=== PATIENT | female | born 1960 | race Caucasian/White ===

== ENCOUNTER 2017-02-25 14:03 | Emergency (ER) | payer OTHER ==
[2017-02-25] MEDS ORDERED: MORPHINE SULFATE 4 MG/ML SYRINGE IM STA (15:02)
--- NOTE | 2017-02-25 15:04 | ED ---
General Adult HPI - General Chief complaint: Fall Stated complaint: Fell 7 stairs. Arm Pain Time Seen by Provider: 02/25/17 14:56 Source: patient, RN notes reviewed Mode of arrival: wheelchair Limitations: no limitations - History of Present Illness Initial comments: patient is a 57-year-old female who presents to the emergency room today with a chief complaint of an injury to the right arm. She does admit that her dog tripped her up and she fell down the steps. She does admit that she try to catch herself with her arm. She does admit to pain locally to the right wrist area. Denies any head injury or loss conscious. Denies any other injuries or complaints at this time. Patient denies any recent fever, chills, shortness of breath, chest pain, back pain, abdominal pain, nausea or vomiting, numbness or tingling, dysuria or hematuria, constipation or diarrhea, headaches or visual changes, or any other complaints. - Related Data Home Medications Medication Instructions Recorded Confirmed ALPRAZolam [Xanax] 0.125 - 0.25 mg PO BID PRN 02/25/17 02/25/17 Alendronate Sodium [Fosamax] 70 mg PO Q7D 02/25/17 02/25/17 Etodolac [Lodine] 400 mg PO BID 02/25/17 02/25/17 Levothyroxine Sodium [Synthroid] 125 mcg PO DAILY 02/25/17 02/25/17 amLODIPine BESYLATE/BENAZEPRIL 1 cap PO DAILY 02/25/17 02/25/17 [Lotrel 5-20 mg Capsule] Previous Rx's Medication Instructions Recorded oxyCODONE-APAP 5-325MG [Percocet 1 tab PO Q6HR PRN #15 tab 02/25/17 5-325 mg] Allergies Allergy/AdvReac Type Severity Reaction Status Date / Time ciprofloxacin [From Cipro] Allergy Rash/Hives Verified 02/25/17 14:59 orange Allergy Anaphylaxis Verified 02/25/17 14:59 phenazopyridine Allergy Rash/Hives Verified 02/25/17 14:59 [From Pyridium] sulfamethoxazole Allergy Rash/Hives Verified 02/25/17 14:59 [From Bactrim] trimethoprim [From Bactrim] Allergy Rash/Hives Verified 02/25/17 14:59 Review of Systems ROS Statement: Those systems with pertinent positive or pertinent negative responses have been documented in the HPI. ROS Other: All systems not noted in ROS Statement are negative. Past Medical History Past Medical History: Thyroid Disorder Additional Past Medical History / Comment(s): kidney stone History of Any Multi-Drug Resistant Organisms: None Reported Past Surgical History: Appendectomy, Hernia Repair, Hysterectomy, Orthopedic Surgery, Tubal Ligation Additional Past Surgical History / Comment(s): rt hand, lithotripsy, thyroidectomy, rotator cuff Past Psychological History: No Psychological Hx Reported Smoking Status: Never smoker Past Alcohol Use History: None Reported Past Drug Use History: None Reported General Exam - General Exam Comments Initial Comments: General: The patient is awake and alert, in no distress, and does not appear acutely ill. Neck: The neck is supple, there is no tenderness or JVD. Cardiovascular: There is a regular rate and rhythm. No murmur, rub or gallop is appreciated. Respiratory: Lungs are clear to auscultation, respirations are non-labored, breath sounds are equal. No wheezes, stridor, rales, or rhonchi. Musculoskeletal: patient does have some swelling to the posterior aspect of the right wrist. She is locally tender over both distal right ulna and radius. Sensations are intact. Shows limited range of motion of the right wrist due to pain. No bony tenderness to the right elbow or right shoulder. Cap refill less than 2 seconds. Pulses equal bilaterally 2+. Neurological: A&O x 3. CN II-XII intact, There are no obvious motor or sensory deficits. Coordination appears grossly intact. Speech is normal. Skin: Skin is warm and dry and no rashes or lesions are noted. Psychiatric: Normal mood and affect. Limitations: no limitations Course Vital Signs 02/25/17 02/25/17 14:32 16:21 Temperature 98.6 F 98.5 F Pulse Rate 75 85 Respiratory 20 18 Rate Blood Pressure 136/68 136/60 O2 Sat by Pulse 98 98 Oximetry Medical Decision Making - Medical Decision Making x-ray reviewed does show a Fracture of the distal radius with ulnar styloid fracture. Patient's neurovascular intact. Has been splinted in a volar short arm splint on the right. Neurovascular rechecked and intact after splint. Patient will be discharged home advised follow-up with her orthopedic doctor. She states she's been [facility] Patient is given a short prescription of pain medication. She states [place] make her nauseous. Disposition Clinical Impression: Fall, Wrist fracture Disposition: HOME SELF-CARE Condition: Good Instructions: Wrist Fracture in Adults (ED) Additional Instructions: Please see splinted in place and follow-up with orthopedics in the next 1-2 days. Please continue to ice elevate the affected area and use pain medication as needed for pain. Please return to emergency room for any other concerns. Prescriptions: oxyCODONE-APAP 5-325MG [Percocet 5-325 mg] 1 tab PO Q6HR PRN #15 tab PRN Reason: Pain Referrals: Hallie Petty MD [Primary Care Provider] - 1-2 days Time of Disposition: 16:26
--- NOTE | 2017-02-25 15:58 | XR ---
Right wrist HISTORY: Trauma and pain 3 views of the right wrist There is an intra-articular comminuted fracture the distal right radius minimal displacement of fract ure fragments. Ulnar styloid fracture is also present without significant displacement. Bone minerali zation is reduced. Suspect the trapezium and trapezoid bones have been resorbed, catheter is present at the level of the trapezoid, trapezium is diminished in size, there is bone remodeling. There is so ft tissue swelling. IMPRESSION: Wrist fractures as described.
[2017-02-25 16:22] VITALS: BP 136/60; RESP 18; TEMP 98.5
[2017-02-25 16:35] VITALS: PULSE 87
== END 2017-02-25 16:40 | disposition home or self-care (01) ==
LOC: EC 14:03
DX: S52.501A Unspecified fracture of the lower end of right radius, initial encounter for closed fracture (principal); S52.611A Displaced fracture of right ulna styloid process, initial encounter for closed fracture; E07.9 Disorder of thyroid, unspecified; Z79.899 Other long term (current) drug therapy; Z88.1 Allergy status to other antibiotic agents; Z88.2 Allergy status to sulfonamides; Z91.018 Allergy to other foods; W10.9XXA Fall (on) (from) unspecified stairs and steps, initial encounter; Y92.009 Unspecified place in unspecified non-institutional (private) residence as the place of occurrence of the external cause
CPT/HCPCS: 73110; 99283; 29125; 96372; J2270

== ENCOUNTER 2017-08-06 08:42 | Emergency (ER) | payer OTHER ==
[2017-08-06] MEDS ORDERED: HYDROmorphone 1 MG/ML 1 ML SYRINGE IVP STA (09:11)
[2017-08-06] MEDS ORDERED: ONDANSETRON 4 MG/2 ML VIAL IVP STA ×2 (09:11→10:40)
--- NOTE | 2017-08-06 09:21 | ED ---
Abdominal Pain HPI - General Chief Complaint: Abdominal Pain Stated Complaint: Abd Pain Time Seen by Provider: 08/06/17 08:57 Source: patient, RN notes reviewed, old records reviewed Mode of arrival: wheelchair Limitations: no limitations - History of Present Illness Initial Comments: Patient 57-year-old female who presents emergency room today with a chief complaint of increased pain to the left lower abdomen. Does not that she was at [facility] emergency room 2 days ago had a CT performed which showed a hernia on the side. She states that since her exam there are 2 days ago she' s been having increased pain. She states it does radiate down the left knee area. She states it is worse with walking. Patient denies any other complaints or symptoms. Patient denies any recent fever, chills, shortness of breath, chest pain, nausea or vomiting, numbness or tingling, dysuria or hematuria, constipation or diarrhea, headaches or visual changes, or any other complaints. - Related Data Home Medications Medication Instructions Recorded Confirmed ALPRAZolam [Xanax] 0.25 mg PO BID PRN 02/25/17 08/06/17 Alendronate Sodium [Fosamax] 70 mg PO Q7D 02/25/17 08/06/17 Levothyroxine Sodium [Synthroid] 125 mcg PO DAILY 02/25/17 08/06/17 amLODIPine BESYLATE/BENAZEPRIL 1 cap PO DAILY 02/25/17 08/06/17 [Lotrel 5-20 mg Capsule] Acetaminophen-Codeine 300-30mg 1 tab PO Q6H PRN 08/06/17 08/06/17 [Tylenol #3] Cephalexin [Keflex] 250 mg PO Q12HR 08/06/17 08/06/17 Cholecalciferol (Vitamin D3) 10,000 unit PO MOWEFR 08/06/17 08/06/17 [Vitamin D3] Etodolac [Lodine] 400 mg PO BID 08/06/17 08/06/17 Previous Rx's Medication Instructions Recorded Dicyclomine [Bentyl] 20 mg PO QID #20 tablet 08/06/17 Ondansetron Odt [Zofran ODT] 4 mg PO Q8HR PRN #20 tab 08/06/17 Allergies Allergy/AdvReac Type Severity Reaction Status Date / Time ciprofloxacin [From Cipro] Allergy Rash/Hives Verified 08/06/17 09:17 orange Allergy Anaphylaxis Verified 08/06/17 09:17 phenazopyridine Allergy Rash/Hives Verified 08/06/17 09:17 [From Pyridium] sulfamethoxazole Allergy Rash/Hives Verified 08/06/17 09:17 [From Bactrim] trimethoprim [From Bactrim] Allergy Rash/Hives Verified 08/06/17 09:17 Review of Systems ROS Statement: Those systems with pertinent positive or pertinent negative responses have been documented in the HPI. ROS Other: All systems not noted in ROS Statement are negative. Past Medical History Past Medical History: Thyroid Disorder Additional Past Medical History / Comment(s): kidney stone History of Any Multi-Drug Resistant Organisms: None Reported Past Surgical History: Appendectomy, Hernia Repair, Hysterectomy, Orthopedic Surgery, Tubal Ligation Additional Past Surgical History / Comment(s): rt hand, lithotripsy, thyroidectomy, rotator cuff Past Psychological History: No Psychological Hx Reported Smoking Status: Never smoker Past Alcohol Use History: None Reported Past Drug Use History: None Reported General Exam - General Exam Comments Initial Comments: General: The patient is awake and alert, in mild distress. Eye: Pupils are equal, round and reactive to light, extra-ocular movements are intact. No nystagmus. There is normal conjunctiva bilaterally. No signs of icterus. Ears, nose, mouth and throat: There are moist mucous membranes and no oral lesions. Neck: The neck is supple, there is no tenderness or JVD. Cardiovascular: There is a regular rate and rhythm. No murmur, rub or gallop is appreciated. Respiratory: Lungs are clear to auscultation, respirations are non-labored, breath sounds are equal. No wheezes, stridor, rales, or rhonchi. Gastrointestinal: Patient has normal appearance abdomen. Normal bowel sounds. Soft on palpation. Patient does have increased tenderness left lower quadrant. No rebound or guarding. Mild left CVA tenderness. Musculoskeletal: Normal ROM, no tenderness. Strength 5/5. Sensation intact. Pulses equal bilaterally 2+. Neurological: A&O x 3. CN II-XII intact, There are no obvious motor or sensory deficits. Coordination appears grossly intact. Speech is normal. Skin: Skin is warm and dry and no rashes or lesions are noted. Psychiatric: Cooperative, appropriate mood & affect, normal judgment. Limitations: no limitations Course Vital Signs 08/06/17 08/06/17 08:43 10:00 Temperature 97 F L 97.3 F L Pulse Rate 88 70 Respiratory 22 16 Rate Blood Pressure 154/74 170/77 O2 Sat by Pulse 98 95 Oximetry Medical Decision Making - Medical Decision Making Patient reexamined at this time shows no signs of distress. Case was discussed with attending physician Dr. Burton. Patient's report from [facility] emergency room was reviewed. A CT was obtained 2 days ago which showed possible enteritis. Nonobstructing left renal pelvis. Small fat-containing left inguinal hernia. Subcentimeter lymph nodes within the left inguinal region. Patient's pain improved here in emergency room. She is feeling well feels comfortable being discharged to follow-up the family doctor. Also be given a surgeon to follow-up. Patient will be treated for symptoms of nausea vomiting diarrhea that she's had over the last week. She states this is no sign of blood. Patient did have recent CT just 2 days ago at this time we will hold CAT scan. Was discussed with patient. She is comfortable to plan at this time states understanding and is in agreement. - Lab Data Result diagrams: 08/06/17 09:30 08/06/17 09:30 Lab Results 08/06/17 08/06/17 08/06/17 Range/Units 09:30 09:30 09:30 WBC 7.2 (3.8-10.6) k/uL RBC 4.94 (3.80-5.40) m/uL Hgb 13.9 (11.4-16.0) gm/dL Hct 42.7 (34.0-46.0) % MCV 86.6 (80.0-100.0) fL MCH 28.1 (25.0-35.0) pg MCHC 32.5 (31.0-37.0) g/dL RDW 14.8 (11.5-15.5) % Plt Count 245 (150-450) k/uL Neutrophils % 81 % Lymphocytes % 12 % Monocytes % 5 % Eosinophils % 1 % Basophils % 1 % Neutrophils # 5.8 (1.3-7.7) k/uL Lymphocytes # 0.9 L (1.0-4.8) k/uL Monocytes # 0.3 (0-1.0) k/uL Eosinophils # 0.1 (0-0.7) k/uL Basophils # 0.0 (0-0.2) k/uL Sodium 142 (137-145) mmol/L Potassium 4.3 (3.5-5.1) mmol/L Chloride 107 (98-107) mmol/L Carbon Dioxide 24 (22-30) mmol/L Anion Gap 11 mmol/L BUN 17 (7-17) mg/dL Creatinine 0.89 (0.52-1.04) mg/dL Est GFR (MDRD) Af Amer >60 (>60 ml/min/1.73 sqM) Est GFR (MDRD) Non-Af >60 (>60 ml/min/1.73 sqM) Glucose 100 H (74-99) mg/dL Plasma Lactic Acid Jonel 1.0 (0.7-2.0) mmol/L Calcium 10.0 (8.4-10.2) mg/dL Total Bilirubin 0.5 (0.2-1.3) mg/dL AST 18 (14-36) U/L ALT 29 (9-52) U/L Alkaline Phosphatase 113 (38-126) U/L Total Protein 8.4 H (6.3-8.2) g/dL Albumin 4.6 (3.5-5.0) g/dL Lipase 65 (23-300) U/L Urine Color Urine Appearance (Clear) Urine pH (5.0-8.0) Ur Specific [place] (1.001-1.035) Urine Protein (Negative) Urine Glucose (UA) (Negative) Urine Ketones (Negative) Urine Blood (Negative) Urine Nitrite (Negative) Urine Bilirubin (Negative) Urine Urobilinogen (<2.0) mg/dL Ur Leukocyte Esterase (Negative) 08/06/17 Range/Units 09:30 WBC (3.8-10.6) k/uL RBC (3.80-5.40) m/uL Hgb (11.4-16.0) gm/dL Hct (34.0-46.0) % MCV (80.0-100.0) fL MCH (25.0-35.0) pg MCHC (31.0-37.0) g/dL RDW (11.5-15.5) % Plt Count (150-450) k/uL Neutrophils % % Lymphocytes % % Monocytes % % Eosinophils % % Basophils % % Neutrophils # (1.3-7.7) k/uL Lymphocytes # (1.0-4.8) k/uL Monocytes # (0-1.0) k/uL Eosinophils # (0-0.7) k/uL Basophils # (0-0.2) k/uL Sodium (137-145) mmol/L Potassium (3.5-5.1) mmol/L Chloride (98-107) mmol/L Carbon Dioxide (22-30) mmol/L Anion Gap mmol/L BUN (7-17) mg/dL Creatinine (0.52-1.04) mg/dL Est GFR (MDRD) Af Amer (>60 ml/min/1.73 sqM) Est GFR (MDRD) Non-Af (>60 ml/min/1.73 sqM) Glucose (74-99) mg/dL Plasma Lactic Acid Jonel (0.7-2.0) mmol/L Calcium (8.4-10.2) mg/dL Total Bilirubin (0.2-1.3) mg/dL AST (14-36) U/L ALT (9-52) U/L Alkaline Phosphatase (38-126) U/L Total Protein (6.3-8.2) g/dL Albumin (3.5-5.0) g/dL Lipase (23-300) U/L Urine Color Yellow Urine Appearance Clear (Clear) Urine pH 7.0 (5.0-8.0) Ur Specific [place] 1.017 (1.001-1.035) Urine Protein Negative (Negative) Urine Glucose (UA) Negative (Negative) Urine Ketones Negative (Negative) Urine Blood Negative (Negative) Urine Nitrite Negative (Negative) Urine Bilirubin 3+ H (Negative) Urine Urobilinogen <2.0 (<2.0) mg/dL Ur Leukocyte Esterase Negative (Negative) Disposition Clinical Impression: Nausea vomiting and diarrhea Disposition: HOME SELF-CARE Condition: Good Instructions: Acute Nausea and Vomiting (ED) Additional Instructions: Please use medication as discussed. Please follow-up with family doctor in the next 2 days of symptoms have not improved. Please return to emergency room if the symptoms increase or worsen or for any other concerns. Prescriptions: Dicyclomine [Bentyl] 20 mg PO QID #20 tablet Ondansetron Odt [Zofran ODT] 4 mg PO Q8HR PRN #20 tab PRN Reason: Nausea Referrals: Hallie Petty MD [Primary Care Provider] - 1-2 days Romana Wilkinson MD [STAFF PHYSICIAN] - 1-2 days Time of Disposition: 10:39
[2017-08-06] MEDS ORDERED: HYDROmorphone 0.5 MG/0.5 ML SYRINGE IVP STA (09:26)
[2017-08-06 09:43] LABS: Basophils % (A) 1 %; CH 27.4; CHCM 31.8; Eosinophils # (A) 0.1 k/uL (0-0.7); Eosinophils % (A) 1 %; HCT 42.7 % (34.0-46.0); HDW 2.23; HGB 13.9 gm/dL (11.4-16.0); Luc # (Auto) 0.04; Luc % (Auto) 1; Lymphocytes # (A) 0.9 k/uL (1.0-4.8); Lymphocytes % (A) 12 %; MCH 28.1 pg (25.0-35.0); MCHC 32.5 g/dL (31.0-37.0); MCV 86.6 fL (80.0-100.0); Mean Platelet Volume 9.7; Monocytes # (A) 0.3 k/uL (0-1.0); Monocytes % (A) 5 %; Neutrophils # (A) 5.8 k/uL (1.3-7.7); Neutrophils % (A) 81 %; RBC 4.94 m/uL (3.80-5.40); RDW 14.8 % (11.5-15.5); WBC 7.2 k/uL (3.8-10.6); WBC (Perox) 7.34
[2017-08-06 09:51] LABS: ALT 29 U/L (9-52); Alkaline Phosphatase 113 U/L (38-126); Anion Gap 11 mmol/L; Blood Urea Nitrogen 17 mg/dL (7-17); Carbon Dioxide 24 mmol/L (22-30); Chloride 107 mmol/L (98-107); Glucose 100 mg/dL (74-99); Non-African American GFR(MDRD) >60 (>60 ml/min/1.73 sqM); Potassium 4.3 mmol/L (3.5-5.1); Sodium 142 mmol/L (137-145); Total Bilirubin 0.5 mg/dL (0.2-1.3); Total Protein 8.4 g/dL (6.3-8.2)
[2017-08-06 10:10] VITALS: BP 170/77; PULSE 70; RESP 16; TEMP 97.3
[2017-08-06 10:10] LABS: AST 18 U/L (14-36)
[2017-08-06 10:13] LABS: Appearance,Urine Clear (Clear); Bilirubin,Urine 3+ (Negative); Glucose,Urine (UA) Negative (Negative); Ketones,Urine Negative (Negative); Leukocyte Esterase,Urine Negative (Negative); Nitrite,Urine Negative (Negative); Protein,Urine Negative (Negative); Specific Gravity,Urine 1.017 (1.001-1.035); UA Billing (MACRO vs. MICRO) CHEM; Urobilinogen,Urine <2.0 mg/dL (<2.0)
== END 2017-08-06 10:52 | disposition home or self-care (01) ==
LOC: EC 08:42
DX: R11.2 Nausea with vomiting, unspecified (principal); R19.7 Diarrhea, unspecified; R10.32 Left lower quadrant pain; M25.562 Pain in left knee; E07.9 Disorder of thyroid, unspecified; Z79.1 Long term (current) use of non-steroidal anti-inflammatories (NSAID); Z79.899 Other long term (current) drug therapy; Z88.1 Allergy status to other antibiotic agents; Z88.8 Allergy status to other drugs, medicaments and biological substances; Z91.018 Allergy to other foods; Z90.49 Acquired absence of other specified parts of digestive tract
CPT/HCPCS: 36415; 80053; 83605; 83690; 85025; 81003; 99284; 96374; 96375; 96376; J2405; J1170

== ENCOUNTER 2019-06-18 13:42 | Emergency (ER) | payer OTHER ==
[2019-06-18 13:50] VITALS: PULSE 107; RESP 16; TEMP 98
[2019-06-18 13:51] VITALS: BP 169/93
[2019-06-18] MEDS ORDERED: ONDANSETRON 4 MG/2 ML VIAL IVP STA (14:18)
[2019-06-18] MEDS ORDERED: MORPHINE SULFATE 4 MG/ML SYRINGE IV STA (14:18)
[2019-06-18] MEDS ORDERED: SODIUM CHLORIDE 0.9% 1,000 ML IV STA (14:18)
[2019-06-18 14:34] LABS: Basophils # (A) 0.1 k/uL (0-0.2); Basophils % (A) 1 %; Eosinophils # (A) 0.3 k/uL (0-0.7); Eosinophils % (A) 4 %; HCT 43.1 % (34.0-46.0); HGB 14.4 gm/dL (11.4-16.0); Lymphocytes # (A) 1.8 k/uL (1.0-4.8); Lymphocytes % (A) 25 %; MCH 28.9 pg (25.0-35.0); MCHC 33.5 g/dL (31.0-37.0); MCV 86.3 fL (80.0-100.0); Mean Platelet Volume 8.9; Monocytes # (A) 0.6 k/uL (0-1.0); Monocytes % (A) 8 %; Neutrophils # (A) 4.4 k/uL (1.3-7.7); Neutrophils % (A) 60 %; Platelet Count 273 k/uL (150-450); RBC 4.99 m/uL (3.80-5.40); RDW 13.1 % (11.5-15.5); WBC 7.2 k/uL (3.8-10.6)
[2019-06-18 14:42] LABS: INR 0.9 (<1.2); Partial Thromboplastin Time 22.5 sec (22.0-30.0)
[2019-06-18 14:47] LABS: Appearance,Urine Cloudy (Clear); Bacteria,Urine Occasional /hpf; Bilirubin,Urine Negative (Negative); Blood,Urine Small (Negative); Color,Urine Colorless; Glucose,Urine (UA) Negative (Negative); Ketones,Urine Negative (Negative); Leukocyte Esterase,Urine Large (Negative); Mucus,Urine Rare /hpf; Nitrite,Urine Negative (Negative); PH, Urine 6.5 (5.0-8.0); Protein,Urine Trace (Negative); RBC,Urine 3 /hpf (0-5); Specific Gravity,Urine 1.003 (1.001-1.035); Urobilinogen,Urine <2.0 mg/dL (<2.0)
[2019-06-18 14:51] LABS: Albumin 4.7 g/dL (3.5-5.0); Calcium 10.7 mg/dL (8.4-10.2); Potassium 4.3 mmol/L (3.5-5.1); Total Bilirubin 0.3 mg/dL (0.2-1.3); Total Protein 8.3 g/dL (6.3-8.2)
--- NOTE | 2019-06-18 15:24 | XR ---
EXAMINATION TYPE: XR KUB DATE OF EXAM: 06/18/2019 COMPARISON: NONE HISTORY: Abdominal pain TECHNIQUE: 2 views upright FINDINGS: There is no sign of intestinal obstruction or pneumoperitoneum. Fecal pattern is normal. Lori ng bases are clear. There are no pathologic calcifications. IMPRESSION: Nonacute abdomen.
--- NOTE | 2019-06-18 16:32 | CT ---
EXAMINATION TYPE: CT abdomen pelvis w con DATE OF EXAM: 06/18/2019 COMPARISON: None HISTORY: Abdominal pain CT DLP: 927.4 mGycm Automated exposure control for dose reduction was used. TECHNIQUE: Helical acquisition of images was performed from the lung bases through the pelvis. CONTRAST: Performed without Oral Contrast and with IV Contrast, patient injected with 100 mL of Isovue 300. FINDINGS: Heart appears normal. There is no pericardial effusion. Lung bases are clear. There is no pleural eff usion. Liver spleen pancreas appear normal. Bile ducts are not dilated. Gallbladder appears absent. Stomach appears normal. There is no adrenal mass. Kidneys have normal size and contour. There is no h ydronephrosis. Ureters are not dilated. There is normal contrast opacification of the kidneys. There is no retroperitoneal adenopathy. Bladder distends smoothly. There is no inguinal hernia. There is hy sterectomy. There is no free fluid in the pelvis. There is no mesenteric edema. There is no ascites or free air. Appendix is not definitely seen. There is no sign of thickened appendix. There is no evidence of bowel obstruction. There is narrowing of L5-S1 disc space with spur formation. There is no lumbar compression fracture. The bony pelvis appears intact. IMPRESSION: NEGATIVE CT SCAN ABDOMEN AND PELVIS. I DO NOT SEE A CAUSE FOR ABDOMINAL PAIN.
--- NOTE | 2019-06-18 16:52 | ED ---
Abdominal Pain HPI - General Chief Complaint: Abdominal Pain Stated Complaint: kidney stone Time Seen by Provider: 06/18/19 14:04 Source: patient Mode of arrival: ambulatory Limitations: no limitations - History of Present Illness Initial Comments: The patient is a 5 year old female presents the emergency room with reported suprapubic abdominal pain. The patient does have a large history of kidney stones. She states that this does feel similar nature. She has had increased frequency of urination. Denies dysuria or hematuria. She has seen Dr. Uriarte in the past. The pain has been present for the past week. She admits it feels like a burning, stabbing sensation. Denies abdominal trauma. Denies any abnormal vaginal bleeding or discharge. No fevers or chills. Denies diarrhea, consultation, melanotic stools or hematochezia. She has been taking Tylenol at home for symptoms however hasn't helped. She denies any chest pain or shortness of breath. No ripping or tearing sensation to her back. Denies any pain in her lower extremities. Denies difficulty urinating. There are no alleviating, Perceptin or modifying factors - Related Data Home Medications Medication Instructions Recorded Confirmed Levothyroxine Sodium [Synthroid] 125 mcg PO DAILY 02/25/17 06/18/19 amLODIPine BESYLATE/BENAZEPRIL 1 cap PO DAILY 02/25/17 06/18/19 [Lotrel 5-20 mg Capsule] Naproxen Sodium [Aleve] 220 mg PO Q12HR PRN 06/18/19 06/18/19 Potassium Citrate [Urocit-K] 15 meq PO TID 06/18/19 06/18/19 Simvastatin [Zocor] 10 mg PO HS 06/18/19 06/18/19 diphenhydrAMINE HCL [Benadryl] 25 mg PO QAM 06/18/19 06/18/19 Previous Rx's Medication Instructions Recorded Acetaminophen-Codeine 300-30mg 1 tab PO Q6HR PRN #12 tablet 06/18/19 [Tylenol #3] Cephalexin [Keflex] 500 mg PO Q12HR #14 cap 06/18/19 Methenamine/Sodium Salicylate 1 each PO TID PRN #10 tablet 06/18/19 [Cystex Tablet] Allergies Allergy/AdvReac Type Severity Reaction Status Date / Time ciprofloxacin [From Cipro] Allergy Rash/Hives Verified 06/18/19 14:20 orange Allergy Anaphylaxis Verified 06/18/19 14:20 phenazopyridine Allergy Rash/Hives Verified 06/18/19 14:20 [From Pyridium] sulfamethoxazole Allergy Rash/Hives Verified 06/18/19 14:20 [From Bactrim] trimethoprim [From Bactrim] Allergy Rash/Hives Verified 06/18/19 14:20 Review of Systems ROS Statement: Those systems with pertinent positive or pertinent negative responses have been documented in the HPI. ROS Other: All systems not noted in ROS Statement are negative. Past Medical History Past Medical History: Thyroid Disorder Additional Past Medical History / Comment(s): kidney stone History of Any Multi-Drug Resistant Organisms: None Reported Past Surgical History: Appendectomy, Hernia Repair, Hysterectomy, Orthopedic Surgery, Tubal Ligation Additional Past Surgical History / Comment(s): rt hand, lithotripsy, thyroidectomy, rotator cuff Past Psychological History: No Psychological Hx Reported Smoking Status: Never smoker Past Alcohol Use History: None Reported Past Drug Use History: None Reported General Exam Limitations: no limitations General appearance: alert, anxious Head exam: Present: atraumatic, normocephalic, normal inspection Eye exam: Present: normal appearance, PERRL, EOMI. Absent: scleral icterus, conjunctival injection, periorbital swelling ENT exam: Present: normal exam, mucous membranes moist Neck exam: Present: normal inspection. Absent: tenderness, meningismus, lymph adenopathy Respiratory exam: Present: normal lung sounds bilaterally. Absent: respiratory distress, wheezes, rales, rhonchi, stridor Cardiovascular Exam: Present: normal rhythm, tachycardia, normal heart sounds. Absent: systolic murmur, diastolic murmur, rubs, gallop, clicks GI/Abdominal exam: Present: soft, tenderness (periumbilical), normal bowel sounds. Absent: distended, guarding, rebound, rigid Extremities exam: Present: normal inspection, full ROM, normal capillary refill. Absent: tenderness, pedal edema, joint swelling, calf tenderness Back exam: Present: normal inspection Neurological exam: Present: alert, oriented X3, CN II-XII intact Psychiatric exam: Present: normal affect, normal mood Skin exam: Present: warm, dry, intact, normal color. Absent: rash Course Vital Signs 06/18/19 13:48 Temperature 98 F Pulse Rate 107 H Respiratory 16 Rate Blood Pressure 169/93 O2 Sat by Pulse 100 Oximetry Medical Decision Making - Medical Decision Making Upon arrival the patient is placed in room 17. The rest of physical exam is performed. Peripheral IV is established. The patient is given 4 mg of morphine for her pain and 4 mg of Zofran for her nausea. Labstudies are conducted which demonstrates a hemoglobin of 14.4. Coags are normal. Chemistries show a crea tinine of 0.88. Glucose 138. UA shows cloudy urine, trace protein, small blood, large leukocyte esterase, greater than 182 white blood cells many white blood cell clumps occasional bacteria and rare mucous. CT of the abdomen and pelvis demonstrates no acute findings. KUB was also performed to evaluate his stone which demonstrates no acute findings. I did discuss these results with the patient. She reports that her pain has greatly improved at this time. I did discuss diagnosis, differential and treatment plan. As the patient does have bacteria in her urine with a significant amount of red blood cells and white blood cells I did recommend treatment with antibiotics. Patient did agree . She'll be given a prescription for Cystex and Keflex. I will also provide the patient with a short prescription for Tylenol No. 3. She does sign an opiate start talking form. She does have an appointment with her primary care physician tomorrow. I informed the patient if she has any new or worsening symptoms that she should return to the emergency room. The patient was discharged home in stable condition - Lab Data Result diagrams: 06/18/19 14:07 06/18/19 14:07 Lab Results 06/18/19 06/18/19 06/18/19 Range/Units 14:07 14:07 14:07 WBC 7.2 (3.8-10.6) k/uL RBC 4.99 (3.80-5.40) m/uL Hgb 14.4 (11.4-16.0) gm/dL Hct 43.1 (34.0-46.0) % MCV 86.3 (80.0-100.0) fL MCH 28.9 (25.0-35.0) pg MCHC 33.5 (31.0-37.0) g/dL RDW 13.1 (11.5-15.5) % Plt Count 273 (150-450) k/uL Neutrophils % 60 % Lymphocytes % 25 % Monocytes % 8 % Eosinophils % 4 % Basophils % 1 % Neutrophils # 4.4 (1.3-7.7) k/uL Lymphocytes # 1.8 (1.0-4.8) k/uL Monocytes # 0.6 (0-1.0) k/uL Eosinophils # 0.3 (0-0.7) k/uL Basophils # 0.1 (0-0.2) k/uL PT (9.0-12.0) sec INR (<1.2) APTT (22.0-30.0) sec Sodium 139 (137-145) mmol/L Potassium 4.3 (3.5-5.1) mmol/L Chloride 104 (98-107) mmol/L Carbon Dioxide 23 (22-30) mmol/L Anion Gap 12 mmol/L BUN 12 (7-17) mg/dL Creatinine 0.88 (0.52-1.04) mg/dL Est GFR (CKD-EPI)AfAm 83 (>60 ml/min/1.73 sqM) Est GFR (CKD-EPI)NonAf 72 (>60 ml/min/1.73 sqM) Glucose 138 H (74-99) mg/dL Plasma Lactic Acid Jonel (0.7-2.0) mmol/L Calcium 10.7 H (8.4-10.2) mg/dL Total Bilirubin 0.3 (0.2-1.3) mg/dL AST 26 (14-36) U/L ALT 30 (9-52) U/L Alkaline Phosphatase 107 (38-126) U/L Total Protein 8.3 H (6.3-8.2) g/dL Albumin 4.7 (3.5-5.0) g/dL Lipase 117 (23-300) U/L Urine Color Colorless Urine Appearance Cloudy H (Clear) Urine pH 6.5 (5.0-8.0) Ur Specific Laura 1.003 (1.001-1.035) Urine Protein Trace H (Negative) Urine Glucose (UA) Negative (Negative) Urine Ketones Negative (Negative) Urine Blood Small H (Negative) Urine Nitrite Negative (Negative) Urine Bilirubin Negative (Negative) Urine Urobilinogen <2.0 (<2.0) mg/dL Ur Leukocyte Esterase Large H (Negative) Urine RBC 3 (0-5) /hpf Urine WBC >182 H (0-5) /hpf Urine WBC Clumps Many H (None) /hpf Urine Bacteria Occasional H (None) /hpf Urine Mucus Rare H (None) /hpf 06/18/19 06/18/19 Range/Units 14:07 14:50 WBC (3.8-10.6) k/uL RBC (3.80-5.40) m/uL Hgb (11.4-16.0) gm/dL Hct (34.0-46.0) % MCV (80.0-100.0) fL MCH (25.0-35.0) pg MCHC (31.0-37.0) g/dL RDW (11.5-15.5) % Plt Count (150-450) k/uL Neutrophils % % Lymphocytes % % Monocytes % % Eosinophils % % Basophils % % Neutrophils # (1.3-7.7) k/uL Lymphocytes # (1.0-4.8) k/uL Monocytes # (0-1.0) k/uL Eosinophils # (0-0.7) k/uL Basophils # (0-0.2) k/uL PT 10.0 (9.0-12.0) sec INR 0.9 (<1.2) APTT 22.5 (22.0-30.0) sec Sodium (137-145) mmol/L Potassium (3.5-5.1) mmol/L Chloride (98-107) mmol/L Carbon Dioxide (22-30) mmol/L Anion Gap mmol/L BUN (7-17) mg/dL Creatinine (0.52-1.04) mg/dL Est GFR (CKD-EPI)AfAm (>60 ml/min/1.73 sqM) Est GFR (CKD-EPI)NonAf (>60 ml/min/1.73 sqM) Glucose (74-99) mg/dL Plasma Lactic Acid Jonel 1.1 (0.7-2.0) mmol/L Calcium (8.4-10.2) mg/dL Total Bilirubin (0.2-1.3) mg/dL AST (14-36) U/L ALT (9-52) U/L Alkaline Phosphatase (38-126) U/L Total Protein (6.3-8.2) g/dL Albumin (3.5-5.0) g/dL Lipase (23-300) U/L Urine Color Urine Appearance (Clear) Urine pH (5.0-8.0) Ur Specific [place] (1.001-1.035) Urine Protein (Negative) Urine Glucose (UA) (Negative) Urine Ketones (Negative) Urine Blood (Negative) Urine Nitrite (Negative) Urine Bilirubin (Negative) Urine Urobilinogen (<2.0) mg/dL Ur Leukocyte Esterase (Negative) Urine RBC (0-5) /hpf Urine WBC (0-5) /hpf Urine WBC Clumps (None) /hpf Urine Bacteria (None) /hpf Urine Mucus (None) /hpf Disposition Clinical Impression: Urinary tract infection Disposition: HOME SELF-CARE Condition: Stable Instructions (If sedation given, give patient instructions): Urinary Tract Infection in Women (ED) Additional Instructions: Please follow-up with your primary care doctor tomorrow your scheduled appointment. Return to the emergency room for any new or worsening symptoms Prescriptions: Methenamine/Sodium Salicylate [Cystex Tablet] 1 each PO TID PRN #10 tablet PRN Reason: Pain Cephalexin [Keflex] 500 mg PO Q12HR #14 cap Acetaminophen-Codeine 300-30mg [Tylenol #3] 1 tab PO Q6HR PRN #12 tablet PRN Reason: pain Is patient prescribed a controlled substance at d/c from ED?: Yes When asked, does pt state using other controlled substances?: No If prescribed controlled substance>3 days was MAPS reviewed?: Prescribed <3 Days If opioid is for acute pain is fill amount 7 days or less?: Yes If Rx opioid, was Start Talking consent form obtained?: Yes Referrals: Hallie Petty MD [Primary Care Provider] - 1-2 days Time of Disposition: 17:20
== END 2019-06-18 17:30 | disposition home or self-care (01) ==
LOC: EC 13:42
DX: N39.0 Urinary tract infection, site not specified (principal); R00.0 Tachycardia, unspecified; E07.9 Disorder of thyroid, unspecified; Z88.1 Allergy status to other antibiotic agents; Z88.2 Allergy status to sulfonamides; Z88.6 Allergy status to analgesic agent; Z79.890 Hormone replacement therapy; Z87.442 Personal history of urinary calculi; Z90.49 Acquired absence of other specified parts of digestive tract; Z98.890 Other specified postprocedural states
CPT/HCPCS: 36415; 80053; 83605; 83690; 85025; 85610; 85730; 81001; 87086; 87077; 87186; 74018; 74177; 99284; 96374; 96375; 96361; J2270; J2405; Q9967

== ENCOUNTER → 2019-11-20 | Outpatient (CLI) | payer OTHER ==
--- NOTE | 2019-11-20 13:19 | CT ---
EXAMINATION TYPE: CT facial bones wo/w con DATE OF EXAM: 11/20/2019 COMPARISON: None HISTORY: 59-year-old female Left sided jaw pain with decreased range of motion. TECHNIQUE: Contiguous axial scanning of the facial bones performed without and with IV Contrast, mingo ent injected with 100 mL of Isovue 300. Coronal reconstructions performed. CT DLP: 1203 mGycm Automated exposure control for dose reduction was used. FINDINGS: There is severe degenerative change of the bilateral TMJs with bony remodeling of the mandibular cond yles and [id number] articulation. Slight superior subluxation at the left TMJ. No periarticular fluid collection is identified or enhancing lesion. Small amount of fluid within the inferior right mastoid air cells. Trace mucosal thickening maxillary sinuses. Slight leftward nasal septal deviation. No acute fracture of the facial bones. Orbits and globes are intact. Visualized intracranial structures show no gross abnormality. Incidental dominant left vertebral emilia ry. IMPRESSION: 1. SEVERE BILATERAL TMJ OA WITH BONY REMODELING OF THE MANDIBULAR CONDYLES AND [id number] ARTICULAT ION. 2. ANTERIOR SUBLUXATION AT THE LEFT TMJ SUGGESTS JOINT DYSFUNCTION. 3. MILD CHRONIC MAXILLARY SINUS DISEASE.
== END | disposition home or self-care (01) ==
LOC: RADCTMAIN 12:12
PROVIDERS: ATTEND Internal Medicine
DX: S03.02XA Dislocation of jaw, left side, initial encounter (principal); M26.69 Other specified disorders of temporomandibular joint
CPT/HCPCS: 70488; Q9967

== ENCOUNTER → 2020-02-26 | Outpatient (CLI) | payer OTHER ==
[2020-02-26 08:45] LABS: Basophils # (A) 0.1 k/uL (0-0.2); Basophils % (A) 1 %; Eosinophils # (A) 0.3 k/uL (0-0.7); Eosinophils % (A) 4 %; HCT 42.5 % (34.0-46.0); HGB 13.7 gm/dL (11.4-16.0); Lymphocytes # (A) 1.2 k/uL (1.0-4.8); Lymphocytes % (A) 17 %; MCH 28.2 pg (25.0-35.0); MCHC 32.2 g/dL (31.0-37.0); MCV 87.4 fL (80.0-100.0); Mean Platelet Volume 10.1; Monocytes # (A) 0.4 k/uL (0-1.0); Monocytes % (A) 7 %; Neutrophils # (A) 4.6 k/uL (1.3-7.7); Neutrophils % (A) 69 %; Platelet Count 233 k/uL (150-450); RBC 4.87 m/uL (3.80-5.40); RDW 13.6 % (11.5-15.5); WBC 6.7 k/uL (3.8-10.6)
[2020-02-26 17:36] LABS: African American GFR (CKD) 70.4 (60.0-200.0); Albumin 4.6 g/dL (3.80-4.90); Albumin/Globulin Ratio 1.64 (1.60-3.17); Anion Gap 9.8 mmol/L (4.00-12.00); Calcium 9.4 mg/dL (8.7-10.3); Carbon Dioxide 24.2 mmol/L (21.6-31.8); Chol/HDL Ratio 3.72; Globulin 2.8 g/dL (1.6-3.3); LDL Cholesterol,Calculated 126.2 mg/dL (0.0-131.0); Non-African American GFR(CKD) 60.8 (60.0-200.0); Potassium 4.6 mmol/L (3.5-5.5); Total Bilirubin 0.3 mg/dL (0.3-1.2); Total Protein 7.4 g/dL (6.2-8.2); VLDL Calculation 31.8 mg/dL (5.00-40.00)
[2020-02-26 17:45] LABS: T4, Free (Free Thyroxine) 1.2 ng/dL (0.80-1.80)
== END | disposition home or self-care (01) ==
LOC: LABWHC1 07:54
PROVIDERS: ATTEND Internal Medicine
DX: E78.2 Mixed hyperlipidemia (principal); E03.9 Hypothyroidism, unspecified; I10 Essential (primary) hypertension
CPT/HCPCS: 36415; 80053; 80061; 84439; 84443; 85025

== ENCOUNTER → 2020-03-25 | Outpatient (CLI) | payer OTHER ==
--- NOTE | 2020-03-25 12:34 | XR ---
EXAMINATION TYPE: XR chest 2V DATE OF EXAM: 03/25/2020 COMPARISON: 06/11/2011 HISTORY: Shortness of breath TECHNIQUE: Frontal and lateral views of the chest are obtained. FINDINGS: Scattered senescent parenchymal changes noted. Hyperinflation compatible with COPD. No evidence for infiltrate. No evidence for atelectasis. Heart size is stable. Mediastinal structures are stable and grossly unremarkable. No evidence for hilar prominence. Degenerative changes dorsal spine. IMPRESSION: 1. No evidence for acute pulmonary disease.
== END | disposition home or self-care (01) ==
LOC: RADXRMAIN 09:41
PROVIDERS: ATTEND Internal Medicine
DX: J40 Bronchitis, not specified as acute or chronic (principal)
CPT/HCPCS: 71046

== ENCOUNTER → 2020-05-13 | Outpatient (CLI) | payer OTHER ==
--- NOTE | 2020-05-13 10:35 | XR ---
Cervical spine HISTORY: Spondylosis with radiculopathy, right arm numbness 5 views of the cervical spine There is multilevel spondylosis. Minimal retrolisthesis grade 1 is present at C3-C4. Cervical vertebr al bodies show preserved height. Bone mineralization is mildly reduced. There is loss of disc height at C3-4, C5-6, C6-7. Prevertebral soft tissues are normal. There are facet arthropathy changes. IMPRESSION: Degenerative disc disease and facet arthropathy.
== END | disposition home or self-care (01) ==
LOC: RADXRMAIN 09:44
PROVIDERS: ATTEND Internal Medicine
DX: M50.10 Cervical disc disorder with radiculopathy, unspecified cervical region (principal); M47.22 Other spondylosis with radiculopathy, cervical region
CPT/HCPCS: 72040

== ENCOUNTER 2020-06-02 09:00 | Emergency (ER) | payer OTHER ==
[2020-06-02 09:15] VITALS: TEMP 98.8
[2020-06-02] MEDS ORDERED: SODIUM CHLORIDE 0.9% 1,000 ML IV STA (09:31)
[2020-06-02] MEDS ORDERED: LORazepam 2 MG/ML INJ IV STA (09:32)
--- NOTE | 2020-06-02 09:35 | ED ---
General Adult HPI - General Chief complaint: Nausea/Vomiting/Diarrhea Stated complaint: jaw pain Time Seen by Provider: 06/02/20 09:16 Source: patient, family, RN notes reviewed Mode of arrival: ambulatory Limitations: no limitations - History of Present Illness Initial comments: Patient is a pleasant 60-year-old female presenting to the emergency Department with jaw pain. Onset of symptoms was yesterday. Patient had right-sided jaw pain that has increased. Patient does have some mild left-sided. Patient has noticed some mild swelling on the right side. Discomfort on the right side is severe. Discomfort does limit patient's ability to open her jaw. Patient did have a couple episodes of diarrhea yesterday. Patient earlier had some discomf ort of her right posterior neck however this has essentially resolved. No chest pain. - Related Data Home Medications Medication Instructions Recorded Confirmed Levothyroxine Sodium [Synthroid] 125 mcg PO DAILY 02/25/17 06/18/19 amLODIPine BESYLATE/BENAZEPRIL 1 cap PO DAILY 02/25/17 06/18/19 [Lotrel 5-20 mg Capsule] Naproxen Sodium [Aleve] 220 mg PO Q12HR PRN 06/18/19 06/18/19 Potassium Citrate [Urocit-K] 15 meq PO TID 06/18/19 06/18/19 Simvastatin [Zocor] 10 mg PO HS 06/18/19 06/18/19 diphenhydrAMINE HCL [Benadryl] 25 mg PO QAM 06/18/19 06/18/19 Previous Rx's Medication Instructions Recorded Acetaminophen-Codeine 300-30mg 1 tab PO Q6HR PRN #12 tablet 06/18/19 [Tylenol #3] Cephalexin [Keflex] 500 mg PO Q12HR #14 cap 06/18/19 Methenamine/Sodium Salicylate 1 each PO TID PRN #10 tablet 06/18/19 [Cystex Tablet] Ibuprofen [Motrin] 600 mg PO Q6HR PRN #20 tab 06/02/20 Allergies Allergy/AdvReac Type Severity Reaction Status Date / Time ciprofloxacin [From Cipro] Allergy Rash/Hives Verified 06/02/20 09:15 orange Allergy Anaphylaxis Verified 06/02/20 09:15 phenazopyridine Allergy Rash/Hives Verified 06/02/20 09:15 [From Pyridium] sulfamethoxazole Allergy Rash/Hives Verified 06/02/20 09:15 [From Bactrim] trimethoprim [From Bactrim] Allergy Rash/Hives Verified 06/02/20 09:15 Review of Systems ROS Statement: Those systems with pertinent positive or pertinent negative responses have been documented in the HPI. ROS Other: All systems not noted in ROS Statement are negative. Constitutional: Denies: fever Eyes: Denies: eye pain ENT: Reports: as per HPI Respiratory: Denies: dyspnea Cardiovascular: Denies: chest pain Endocrine: Denies: fatigue Gastrointestinal: Reports: diarrhea. Denies: abdominal pain Genitourinary: Denies: dysuria Musculoskeletal: Denies: back pain Skin: Denies: rash Neurological: Denies: weakness Past Medical History Past Medical History: Asthma, Thyroid Disorder Additional Past Medical History / Comment(s): kidney stone History of Any Multi-Drug Resistant Organisms: None Reported Past Surgical History: Appendectomy, Hernia Repair, Hysterectomy, Orthopedic Surgery, Tubal Ligation Additional Past Surgical History / Comment(s): rt hand, lithotripsy, thyroidectomy, rotator cuff Past Psychological History: No Psychological Hx Reported Smoking Status: Never smoker Past Alcohol Use History: None Reported Past Drug Use History: None Reported General Exam Limitations: no limitations General appearance: alert, anxious Head exam: Present: normocephalic Eye exam: Present: normal appearance ENT exam: Present: normal oropharynx (No swelling or tenderness in the subungual or submental region), other (Patient is only able to open her mouth around one third normal. Patient states secondary to discomfort. There is mild swelling right upper parotid gland region near the TMJ with moderate to severe tenderness. No erythema or warmth.) Neck exam: Present: normal inspection, full ROM. Absent: tenderness Respiratory exam: Present: normal lung sounds bilaterally. Absent: chest wall tenderness Cardiovascular Exam: Present: regular rate, normal rhythm Expanded Peripheral pulses: 2+: Radial (R), Radial (L), Dorsalis Pedis (R), Dorsalis Pedis (L) GI/Abdominal exam: Present: soft. Absent: tenderness Extremities exam: Present: normal inspection Neurological exam: Present: alert, CN II-XII intact. Absent: motor sensory deficit Expanded Motor strength exam: RUE: 5, LUE: 5, RLE: 5, LLE: 5 Psychiatric exam: Present: anxious Skin exam: Present: normal color Course Vital Signs 06/02/20 06/02/20 09:08 11:34 Temperature 98.8 F Pulse Rate 113 H 105 H Respiratory 18 20 Rate Blood Pressure 147/62 104/87 O2 Sat by Pulse 100 96 Oximetry EKG Findings - EKG Comments: EKG Findings:: Sinus tachycardia 113. NV 126. QRS 76. QT 342. QTC 469. Normal axis. Normal QRS. Inferior T wave inversion Medical Decision Making - Medical Decision Making Patient reevaluated and feeling much better. Case was discussed with Dr. Petty who is aware and agreeable with follow-up this week. Patient feels much better and has better range of motion of her jaw. Patient comfortable with discharge home. - Lab Data Result diagrams: 06/02/20 09:48 06/02/20 09:48 Lab Results 06/02/20 06/02/20 06/02/20 Range/Units 09:48 09:48 09:48 WBC 10.1 (3.8-10.6) k/uL RBC 5.29 (3.80-5.40) m/uL Hgb 14.3 (11.4-16.0) gm/dL Hct 44.2 (34.0-46.0) % MCV 83.5 (80.0-100.0) fL MCH 27.0 (25.0-35.0) pg MCHC 32.4 (31.0-37.0) g/dL RDW 13.3 (11.5-15.5) % Plt Count 266 (150-450) k/uL Neutrophils % 78 % Lymphocytes % 11 % Monocytes % 8 % Eosinophils % 2 % Basophils % 1 % Neutrophils # 7.9 H (1.3-7.7) k/uL Lymphocytes # 1.1 (1.0-4.8) k/uL Monocytes # 0.8 (0-1.0) k/uL Eosinophils # 0.2 (0-0.7) k/uL Basophils # 0.1 (0-0.2) k/uL PT 9.8 (9.0-12.0) sec INR 0.9 (<1.2) APTT 20.5 L (22.0-30.0) sec Sodium 137 (137-145) mmol/L Potassium 5.9 H (3.5-5.1) mmol/L Chloride 106 (98-107) mmol/L Carbon Dioxide 21 L (22-30) mmol/L Anion Gap 10 mmol/L BUN 12 (7-17) mg/dL Creatinine 0.78 (0.52-1.04) mg/dL Est GFR (CKD-EPI)AfAm >90 (>60 ml/min/1.73 sqM) Est GFR (CKD-EPI)NonAf 83 (>60 ml/min/1.73 sqM) Glucose 125 H (74-99) mg/dL Plasma Lactic Acid Jonel (0.7-2.0) mmol/L Calcium 10.0 (8.4-10.2) mg/dL Phosphorus 3.8 (2.5-4.5) mg/dL Magnesium 2.0 (1.6-2.3) mg/dL Total Bilirubin 1.4 H (0.2-1.3) mg/dL AST 43 H (14-36) U/L ALT 23 (4-34) U/L Alkaline Phosphatase 147 H (38-126) U/L Creatine Kinase 133 (30-135) U/L Troponin I (0.000-0.034) ng/mL Total Protein 9.3 H (6.3-8.2) g/dL Albumin 5.0 (3.5-5.0) g/dL TSH 0.275 L (0.465-4.680) mIU/L Urine Color Urine Appearance (Clear) Urine pH (5.0-8.0) Ur Specific [place] (1.001-1.035) Urine Protein (Negative) Urine Glucose (UA) (Negative) Urine Ketones (Negative) Urine Blood (Negative) Urine Nitrite (Negative) Urine Bilirubin (Negative) Urine Urobilinogen (<2.0) mg/dL Ur Leukocyte Esterase (Negative) Urine RBC (0-5) /hpf Urine WBC (0-5) /hpf Ur Squamous Epith Cells (0-4) /hpf Urine Mucus (None) /hpf 06/02/20 06/02/20 06/02/20 Range/Units 09:48 09:48 11:29 WBC (3.8-10.6) k/uL RBC (3.80-5.40) m/uL Hgb (11.4-16.0) gm/dL Hct (34.0-46.0) % MCV (80.0-100.0) fL MCH (25.0-35.0) pg MCHC (31.0-37.0) g/dL RDW (11.5-15.5) % Plt Count (150-450) k/uL Neutrophils % % Lymphocytes % % Monocytes % % Eosinophils % % Basophils % % Neutrophils # (1.3-7.7) k/uL Lymphocytes # (1.0-4.8) k/uL Monocytes # (0-1.0) k/uL Eosinophils # (0-0.7) k/uL Basophils # (0-0.2) k/uL PT (9.0-12.0) sec INR (<1.2) APTT (22.0-30.0) sec Sodium (137-145) mmol/L Potassium (3.5-5.1) mmol/L Chloride (98-107) mmol/L Carbon Dioxide (22-30) mmol/L Anion Gap mmol/L BUN (7-17) mg/dL Creatinine (0.52-1.04) mg/dL Est GFR (CKD-EPI)AfAm (>60 ml/min/1.73 sqM) Est GFR (CKD-EPI)NonAf (>60 ml/min/1.73 sqM) Glucose (74-99) mg/dL Plasma Lactic Acid Jonel 1.5 (0.7-2.0) mmol/L Calcium (8.4-10.2) mg/dL Phosphorus (2.5-4.5) mg/dL Magnesium (1.6-2.3) mg/dL Total Bilirubin (0.2-1.3) mg/dL AST (14-36) U/L ALT (4-34) U/L Alkaline Phosphatase (38-126) U/L Creatine Kinase (30-135) U/L Troponin I <0.012 (0.000-0.034) ng/mL Total Protein (6.3-8.2) g/dL Albumin (3.5-5.0) g/dL TSH (0.465-4.680) mIU/L Urine Color Yellow Urine Appearance Clear (Clear) Urine pH 7.5 (5.0-8.0) Ur Specific [place] >1.050 H (1.001-1.035) Urine Protein Trace H (Negative) Urine Glucose (UA) Negative (Negative) Urine Ketones Trace H (Negative) Urine Blood Trace H (Negative) Urine Nitrite Negative (Negative) Urine Bilirubin Negative (Negative) Urine Urobilinogen <2.0 (<2.0) mg/dL Ur Leukocyte Esterase Negative (Negative) Urine RBC 6 H (0-5) /hpf Urine WBC 1 (0-5) /hpf Ur Squamous Epith Cells 2 (0-4) /hpf Urine Mucus Rare H (None) /hpf - Radiology Data Radiology results: report reviewed (Computed tomography scan of the neck does show arthritic changes of the TMJ) Disposition Clinical Impression: Jaw pain, TMJ arthralgia Disposition: HOME SELF-CARE Condition: Stable Instructions (If sedation given, give patient instructions): Temporomandibular Disorder (ED) Additional Instructions: Please follow-up with Dr. Petty this week. Return for increased pain, worsening or change in symptoms, or other concerns. Prescription was sent to [facility] on . Prescriptions: Ibuprofen [Motrin] 600 mg PO Q6HR PRN #20 tab PRN Reason: Pain Is patient prescribed a controlled substance at d/c from ED?: No Referrals: Hallie Petty MD [Primary Care Provider] - 1-2 days Time of Disposition: 12:17
[2020-06-02 09:59] LABS: Basophils # (A) 0.1 k/uL (0-0.2); Basophils % (A) 1 %; Eosinophils # (A) 0.2 k/uL (0-0.7); Eosinophils % (A) 2 %; HCT 44.2 % (34.0-46.0); HGB 14.3 gm/dL (11.4-16.0); Lymphocytes # (A) 1.1 k/uL (1.0-4.8); Lymphocytes % (A) 11 %; MCHC 32.4 g/dL (31.0-37.0); MCV 83.5 fL (80.0-100.0); Mean Platelet Volume 9.4; Monocytes # (A) 0.8 k/uL (0-1.0); Monocytes % (A) 8 %; Neutrophils # (A) 7.9 k/uL (1.3-7.7); Neutrophils % (A) 78 %; Platelet Count 266 k/uL (150-450); RBC 5.29 m/uL (3.80-5.40); RDW 13.3 % (11.5-15.5); WBC 10.1 k/uL (3.8-10.6)
[2020-06-02 10:23] LABS: ALT 23 U/L (4-34); AST 43 U/L (14-36); African American GFR (CKD) >90 (>60 ml/min/1.73 sqM); Alkaline Phosphatase 147 U/L (38-126); Anion Gap 10 mmol/L; Blood Urea Nitrogen 12 mg/dL (7-17); Carbon Dioxide 21 mmol/L (22-30); Chloride 106 mmol/L (98-107); Creatine Kinase 133 U/L (30-135); Glucose 125 mg/dL (74-99); Non-African American GFR(CKD) 83 (>60 ml/min/1.73 sqM); Phosphorus 3.8 mg/dL (2.5-4.5); Potassium 5.9 mmol/L (3.5-5.1); Sodium 137 mmol/L (137-145); Total Bilirubin 1.4 mg/dL (0.2-1.3); Total Protein 9.3 g/dL (6.3-8.2)
--- NOTE | 2020-06-02 10:34 | XR ---
EXAMINATION TYPE: XR chest 2V DATE OF EXAM: 06/02/2020 COMPARISON: Prior chest x-ray 03/25/2020 HISTORY: Weakness and jaw pain TECHNIQUE: Frontal and lateral views of the chest are obtained. FINDINGS: There is no focal air space opacity, pleural effusion, or pneumothorax seen. Some minimal subsegmental atelectatic change or scarring present at the left costophrenic angle. There are overly ing cardiac leads. The cardiac silhouette size is within normal limits. The osseous structures are intact. IMPRESSION: No acute cardiopulmonary process.
[2020-06-02 10:52] LABS: INR 0.9 (<1.2); Prothrombin Time 9.8 sec (9.0-12.0)
--- NOTE | 2020-06-02 10:52 | CT ---
EXAMINATION TYPE: CT soft tissue neck w con DATE OF EXAM: 06/02/2020 10:23 AM COMPARISON: Automated exposure control for dose reduction. HISTORY: Right preauricular pain and swelling CT DLP: 243.2 mGycm Automated exposure control for dose reduction was used. CONTRAST: CT scan of the neck is performed following with IV Contrast, patient injected with 100 ml mL of Isovu e 300. Axial images are obtained, coronal and sagittal reformatted images are reviewed. FINDINGS: Airway: No gross abnormality seen. Parotid/submandibular glands: No gross abnormality seen. Carotid/Vascular Structures: Patent. Left vertebral artery is dominant. 3 super aortic branch vessels . Osseous Structures: Mild degenerative disc changes are present, there is spondylosis at C5-6. Other: Some shotty nodes present in the prevascular space upper mediastinum. Skull base is normal. Te mporomandibular joints show marked osteoarthritic change. 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
[2020-06-02 10:53] LABS: Partial Thromboplastin Time 20.5 sec (22.0-30.0)
[2020-06-02] MEDS ORDERED: MORPHINE SULFATE 2 MG/ML SYRINGE IVP STA (11:05)
[2020-06-02] MEDS ORDERED: KETOROLAC 15 MG/ML 1 ML VIAL IVP STA (11:05)
[2020-06-02 11:35] VITALS: BP 104/87; PULSE 105; RESP 20
[2020-06-02 11:51] LABS: Appearance,Urine Clear (Clear); Bilirubin,Urine Negative (Negative); Blood,Urine Trace (Negative); Color,Urine Yellow; Glucose,Urine (UA) Negative (Negative); Ketones,Urine Trace (Negative); PH, Urine 7.5 (5.0-8.0); Protein,Urine Trace (Negative)
[2020-06-02 11:52] LABS: Leukocyte Esterase,Urine Negative (Negative); Mucus,Urine Rare /hpf; Nitrite,Urine Negative (Negative); RBC,Urine 6 /hpf (0-5); Squamous Epithelial Cell,Urine 2 /hpf (0-4); Urobilinogen,Urine <2.0 mg/dL (<2.0); WBC,Urine 1 /hpf (0-5)
[2020-06-02 12:03] LABS: Specific Gravity,Urine >1.050 (1.001-1.035)
[2020-06-02] MEDS ORDERED: ACET/COD 300 MG/30 MG STARTER PACK 6 TAB BTL PO STA (12:17)
== END 2020-06-02 12:54 | disposition home or self-care (01) ==
LOC: EC 09:00
DX: M26.621 Arthralgia of right temporomandibular joint (principal); E07.9 Disorder of thyroid, unspecified; N20.0 Calculus of kidney; Z79.899 Other long term (current) drug therapy; Z79.890 Hormone replacement therapy; Z88.1 Allergy status to other antibiotic agents; Z88.2 Allergy status to sulfonamides; Z91.018 Allergy to other foods; Z88.6 Allergy status to analgesic agent
CPT/HCPCS: 36415; 93005; 80053; 82550; 83605; 83735; 84100; 84443; 84484; 85025; 85610; 85730; 81001; 87040; 71046; 70491; 99284; 96374; 96375 ×2; 96361 ×3; J2060; J2270; J1885; Q9967

== ENCOUNTER → 2020-06-12 | Outpatient (CLI) | payer OTHER ==
--- NOTE | 2020-06-12 11:31 | NM ---
EXAMINATION TYPE: NM stress cardiolite complete DATE OF EXAM: 06/12/2020 COMPARISON: NONE HISTORY: Abnormal EKG, inferior ST segment depression TECHNIQUE: After the intravenous administration of 10.09 mCi Tc 99m Sestamibi - Rest images obtained 45 minutes post injection. The patient exercised using a FILOMENA protocol and 1 minute prior to peak exercise was injected with 26.5 mCi Tc 99m Sestamibi - Stress images obtained 15 minutes post inject ion. FINDINGS: Targeted heart rate was achieved during performance of the study. Review of stress and rest SPECT jesenia ges demonstrates mild decreased uptake along the anterolateral left ventricle on both stress and rest images, greater on rest images. Gated analysis shows normal wall motion with an estimated left vent ricular ejection fraction of 68 %. IMPRESSION: No scintigraphic evidence for reversible ischemia. Consider echocardiographic correlation for elevate d ejection fraction. Difficult to exclude prior infarct along anterior wall the left ventricle
--- NOTE | 2020-06-12 12:31 | EST ---
EXERCISE STRESS AGE: 60 SEX: F HT: 5'2" WT: 187 lbs. PROTOCOL: Cardiolite stress test STAGE: 2 DURATION OF EXERCISE: 5:30 HEART RATE REST: 70 BLOOD PRESSURE REST: 139/91 MAXIMUM HEART RATE ACHIEVED: 137 MAXIMUM BLOOD PRESSURE: 168/108 85% MPHR: 135 100% MPHR: 159 METS: 7.1 INDICATIONS: Chest pain. CLINICAL INFORMATION: Baseline EKG shows sinus rhythm, normal axis, normal intervals. Patient exercised on José Miguel protocol for a total of 5.5 minutes achieving 7 METS, 86% of predicted maximal heart rate without chest pain or diagnostic ST-segment depression. CONCLUSION: 1. Average exercise tolerance. 2. Negative stress test by EKG criteria. 3. Cardiolite portion of the stress test will be reported separately. MMODL / IJN: [id number] /
== END | disposition home or self-care (01) ==
LOC: RADNMMAIN 07:50
PROVIDERS: ATTEND Internal Medicine
DX: R94.31 Abnormal electrocardiogram [ECG] [EKG] (principal)
CPT/HCPCS: 93017; 78452; A9500

== ENCOUNTER → 2020-06-17 | Outpatient (CLI) | payer OTHER | END | disposition home or self-care (01) | LOC: LABWHC1 09:20 | PROVIDERS: ATTEND Internal Medicine | DX: Z20.828 Contact with and (suspected) exposure to other viral communicable diseases (principal) | CPT/HCPCS: U0003; C9803 ==

== ENCOUNTER 2020-07-31 20:13 | Emergency (ER) | payer OTHER ==
[2020-07-31] MEDS ORDERED: KETOROLAC 15 MG/ML 1 ML VIAL IVP STA (20:41)
--- NOTE | 2020-07-31 20:46 | ED ---
Chest Pain HPI - General Chief Complaint: Chest Pain Stated Complaint: Chest Pain Time Seen by Provider: 07/31/20 20:33 Source: patient, RN notes reviewed, old records reviewed Mode of arrival: ambulatory Limitations: no limitations - History of Present Illness Initial Comments: This is a 60-year-old female who presents with complaints of acid left-sided chest pain going up to her neck started after bending over earlier today. She states the chest tightness lasted about 10 minutes after getting up right. She states she still having some left-sided neck and chest pain. The left neck is 5-6/10 severity left chest pain is getting better than when it does come on is on the left lateral rib area. She does have a evaluation with cardiology upcoming. No fevers chills nausea vomiting sweats cough or other symptoms. MD Complaint: chest pain - Related Data Home Medications Medication Instructions Recorded Confirmed Levothyroxine Sodium [Synthroid] 187.5 mcg PO TANG 02/25/17 07/31/20 amLODIPine BESYLATE/BENAZEPRIL 1 cap PO DAILY 02/25/17 07/31/20 [Lotrel 5-20 mg Capsule] Potassium Citrate [Urocit-K] 15 meq PO DAILY 06/18/19 07/31/20 diphenhydrAMINE HCL [Benadryl] 25 mg PO HS 06/18/19 07/31/20 Alendronate Sodium [Fosamax] 70 mg PO TANG 07/31/20 07/31/20 Atorvastatin [Lipitor] 40 mg PO HS 07/31/20 07/31/20 Baclofen 10 mg PO BID 07/31/20 07/31/20 Cetirizine HCl [Zyrtec] 10 mg PO DAILY 07/31/20 07/31/20 EPINEPHrine (Auto Inject) [Epipen] 0.3 mg IM ONCE PRN 07/31/20 07/31/20 Ibuprofen [Motrin] 600 mg PO Q8H PRN 07/31/20 07/31/20 Levothyroxine Sodium [Synthroid] 125 mcg PO MOTUWETHFRSA 07/31/20 07/31/20 Omeprazole [PriLOSEC] 40 mg PO DAILY 07/31/20 07/31/20 Allergies Allergy/AdvReac Type Severity Reaction Status Date / Time ciprofloxacin [From Cipro] Allergy Rash/Hives Verified 07/31/20 20:19 orange Allergy Anaphylaxis Verified 07/31/20 20:19 phenazopyridine Allergy Rash/Hives Verified 07/31/20 20:19 [From Pyridium] sulfamethoxazole Allergy Rash/Hives Verified 07/31/20 20:19 [From Bactrim] trimethoprim [From Bactrim] Allergy Rash/Hives Verified 07/31/20 20:19 Review of Systems ROS Statement: Those systems with pertinent positive or pertinent negative responses have been documented in the HPI. ROS Other: All systems not noted in ROS Statement are negative. EKG Findings - EKG Results: EKG: interpreted by ANGELA RANGEL, sinus rhythm, normal axis, normal QRS, normal ST/T, no acute changes (EKG shows normal sinus rhythm a 75. We'll 118 QRS duration 80 QT since QTC 380/[address]-T wave changes) Past Medical History Past Medical History: Asthma, Thyroid Disorder Additional Past Medical History / Comment(s): kidney stone History of Any Multi-Drug Resistant Organisms: None Reported Past Surgical History: Appendectomy, Hernia Repair, Hysterectomy, Orthopedic Surgery, Tubal Ligation Additional Past Surgical History / Comment(s): rt hand, lithotripsy, thyroidectomy, rotator cuff Past Psychological History: No Psychological Hx Reported Smoking Status: Never smoker Past Alcohol Use History: None Reported Past Drug Use History: None Reported General Exam - General Exam Comments Initial Comments: This is a well-developed well-nourished awake alert oriented 3 female Limitations: no limitations General appearance: alert, anxious Head exam: Present: atraumatic, normocephalic, normal inspection Eye exam: Present: normal appearance, PERRL, EOMI. Absent: scleral icterus, conjunctival injection, periorbital swelling ENT exam: Present: normal exam, mucous membranes moist Neck exam: Present: normal inspection, tenderness, full ROM, other (Is palpation of left lateral neck musculature.). Absent: meningismus, lymphadenopathy Respiratory exam: Present: normal lung sounds bilaterally, chest wall tenderness ( No JVD or bruits costochondral margin no step-off or crepitation. ). Absent: respiratory distress, wheezes, rales, rhonchi, stridor Cardiovascular Exam: Present: regular rate, normal rhythm, normal heart sounds. Absent: systolic murmur, diastolic murmur, rubs, gallop, clicks GI/Abdominal exam: Present: soft, normal bowel sounds. Absent: distended, tenderness, guarding, rebound, rigid Extremities exam: Present: normal inspection, full ROM, normal capillary refill. Absent: tenderness, pedal edema, joint swelling, calf tenderness Back exam: Present: normal inspection Neurological exam: Present: alert, oriented X3, CN II-XII intact Psychiatric exam: Present: normal affect, normal mood Skin exam: Present: warm, dry, intact, normal color. Absent: rash Course Vital Signs 07/31/20 07/31/20 20:16 21:56 Temperature 98.3 F Pulse Rate 79 70 Respiratory 20 18 Rate Blood Pressure 150/86 126/79 O2 Sat by Pulse 100 96 Oximetry Chest Pain MDM - MDM I did review the imaging and report no acute findings. The patient did get relief from the Toradol was given the presentation is consistent with chest wall pain does not appear to be consistent with cardiac etiology. Disposition Clinical Impression: Costochondritis, Chest wall syndrome Disposition: HOME SELF-CARE Condition: Good Instructions (If sedation given, give patient instructions): Costochondritis (ED) Additional Instructions: Note for work for tomorrow may return if following day. Additionally he may use her Motrin for pain control when necessary Is patient prescribed a controlled substance at d/c from ED?: No Referrals: Hallie Petty MD [Primary Care Provider] - 1-2 days
[2020-07-31 21:49] LABS: Basophils # (A) 0.1 k/uL (0-0.2); Basophils % (A) 1 %; Eosinophils # (A) 0.4 k/uL (0-0.7); Eosinophils % (A) 5 %; HCT 41.4 % (34.0-46.0); HGB 13.4 gm/dL (11.4-16.0); Lymphocytes # (A) 2.2 k/uL (1.0-4.8); Lymphocytes % (A) 30 %; MCH 27.4 pg (25.0-35.0); MCHC 32.3 g/dL (31.0-37.0); MCV 84.7 fL (80.0-100.0); Mean Platelet Volume 9.5; Monocytes # (A) 0.6 k/uL (0-1.0); Monocytes % (A) 8 %; Neutrophils # (A) 3.9 k/uL (1.3-7.7); Neutrophils % (A) 53 %; Platelet Count 277 k/uL (150-450); RBC 4.88 m/uL (3.80-5.40); RDW 13.6 % (11.5-15.5); WBC 7.3 k/uL (3.8-10.6)
--- NOTE | 2020-07-31 21:57 | XR ---
EXAMINATION TYPE: XR chest 2V DATE OF EXAM: 07/31/2020 COMPARISON: 06/02/2020. HISTORY: Left-sided chest pain. TECHNIQUE: Frontal and lateral views of the chest are obtained. FINDINGS: There is no focal air space opacity, pleural effusion, or pneumothorax seen. The cardiac silhouette size is within normal limits. The osseous structures are intact. IMPRESSION: No acute cardiopulmonary process.
[2020-07-31 21:58] VITALS: RESP 18
[2020-07-31 21:58] LABS: INR 0.9 (<1.2); Partial Thromboplastin Time 22.2 sec (22.0-30.0); Prothrombin Time 9.6 sec (9.0-12.0)
[2020-07-31 22:06] LABS: Albumin 4.7 g/dL (3.5-5.0); Calcium 9.7 mg/dL (8.4-10.2); Magnesium 1.8 mg/dL (1.6-2.3); Potassium 4.2 mmol/L (3.5-5.1); Total Bilirubin 0.3 mg/dL (0.2-1.3); Total Protein 8.4 g/dL (6.3-8.2)
[2020-07-31 23:13] VITALS: BP 137/75; PULSE 67
[2020-07-31 23:28] VITALS: TEMP 98.2
== END 2020-07-31 23:20 | disposition home or self-care (01) ==
LOC: EC 20:13
DX: M94.0 Chondrocostal junction syndrome [Tietze] (principal); R07.1 Chest pain on breathing; E07.9 Disorder of thyroid, unspecified; Z79.899 Other long term (current) drug therapy; Z79.83 Long term (current) use of bisphosphonates; Z79.890 Hormone replacement therapy; Z88.6 Allergy status to analgesic agent; Z88.1 Allergy status to other antibiotic agents; Z91.018 Allergy to other foods; Z88.2 Allergy status to sulfonamides; Z87.442 Personal history of urinary calculi
CPT/HCPCS: 36415; 93005; 83880; 80053; 82550; 83735; 84484; 85025; 85610; 85730; 71046; 99285; 96374; J1885

== ENCOUNTER → 2020-09-24 | Outpatient (CLI) | payer OTHER | END | disposition home or self-care (01) | LOC: LABWHC1 13:17 | PROVIDERS: ATTEND Internal Medicine | DX: Z20.822 Contact with and (suspected) exposure to COVID-19 (principal) | CPT/HCPCS: U0003; C9803; U0005 ==

== ENCOUNTER 2020-11-17 14:16 | Emergency (ER) | payer OTHER ==
[2020-11-17 14:19] VITALS: RESP 18; TEMP 98
[2020-11-17] MEDS ORDERED: SODIUM CHLORIDE 0.9% 1,000 ML IV STA (14:32)
[2020-11-17] MEDS ORDERED: KETOROLAC 15 MG/ML 1 ML VIAL IVP STA (14:32)
[2020-11-17] MEDS ORDERED: methylPREDNISolone SOD SUCCI 125 MG/2 ML VIAL IV STA (14:33)
[2020-11-17 15:01] LABS: Appearance,Urine Clear (Clear); Basophils % (A) 1 %; Bilirubin,Urine Negative (Negative); Blood,Urine Negative (Negative); Color,Urine Colorless; Eosinophils # (A) 0.2 k/uL (0-0.7); Eosinophils % (A) 4 %; Glucose,Urine (UA) Negative (Negative); HCT 40.4 % (34.0-46.0); HGB 13.5 gm/dL (11.4-16.0); Ketones,Urine Negative (Negative); Leukocyte Esterase,Urine Negative (Negative); Lymphocytes # (A) 0.8 k/uL (1.0-4.8); Lymphocytes % (A) 21 %; MCH 27.9 pg (25.0-35.0); MCHC 33.4 g/dL (31.0-37.0); MCV 83.7 fL (80.0-100.0); Mean Platelet Volume 9.7; Monocytes # (A) 0.4 k/uL (0-1.0); Monocytes % (A) 10 %; Neutrophils # (A) 2.4 k/uL (1.3-7.7); Neutrophils % (A) 61 %; Nitrite,Urine Negative (Negative); PH, Urine 6.5 (5.0-8.0); Platelet Count 185 k/uL (150-450); Protein,Urine Negative (Negative); RBC 4.82 m/uL (3.80-5.40); RDW 14.4 % (11.5-15.5); Specific Gravity,Urine 1.002 (1.001-1.035); Urobilinogen,Urine <2.0 mg/dL (<2.0); WBC 3.9 k/uL (3.8-10.6)
[2020-11-17 15:11] LABS: ALT 47 U/L (4-34); AST 54 U/L (14-36); African American GFR (CKD) >90 (>60 ml/min/1.73 sqM); Albumin 4.5 g/dL (3.5-5.0); Alkaline Phosphatase 95 U/L (38-126); Anion Gap 11 mmol/L; Blood Urea Nitrogen 11 mg/dL (7-17); Calcium 8.9 mg/dL (8.4-10.2); Carbon Dioxide 18 mmol/L (22-30); Chloride 109 mmol/L (98-107); Glucose 95 mg/dL (74-99); Non-African American GFR(CKD) 88 (>60 ml/min/1.73 sqM); Sodium 138 mmol/L (137-145); Total Bilirubin 0.7 mg/dL (0.2-1.3); Total Protein 7.9 g/dL (6.3-8.2)
--- NOTE | 2020-11-17 15:13 | ED ---
General Adult HPI - General Chief complaint: Abdominal Pain Stated complaint: L side pain Source: patient, family, RN notes reviewed Mode of arrival: ambulatory - History of Present Illness Initial comments: Patient is a 60-year-old female presents emergency department with left lower back pain. She notes that her on this time ER ALLERGY related bed. She'll that she's been having coughing fits. She noted a laceration a coughing fit felt something pop in her lower back. She does have a history of kidney stones and was worried about that. She states that the pain radiates down her left leg. She is about a 9-10 out of 10 with no relief. He was in mild pain or distress while sitting up in bed during the examination interview. She denied any chest pain shortness breath headache nausea vomiting diarrhea constipation fever fatigue chills weakness numbness tingling. - Related Data Home Medications Medication Instructions Recorded Confirmed Levothyroxine Sodium [Synthroid] 187.5 mcg PO TANG 02/25/17 07/31/20 amLODIPine BESYLATE/BENAZEPRIL 1 cap PO DAILY 02/25/17 07/31/20 [Lotrel 5-20 mg Capsule] Potassium Citrate [Urocit-K] 15 meq PO DAILY 06/18/19 07/31/20 diphenhydrAMINE HCL [Benadryl] 25 mg PO HS 06/18/19 07/31/20 Alendronate Sodium [Fosamax] 70 mg PO TANG 07/31/20 07/31/20 Atorvastatin [Lipitor] 40 mg PO HS 07/31/20 07/31/20 Baclofen 10 mg PO BID 07/31/20 07/31/20 Cetirizine HCl [Zyrtec] 10 mg PO DAILY 07/31/20 07/31/20 EPINEPHrine (Auto Inject) [Epipen] 0.3 mg IM ONCE PRN 07/31/20 07/31/20 Ibuprofen [Motrin] 600 mg PO Q8H PRN 07/31/20 07/31/20 Levothyroxine Sodium [Synthroid] 125 mcg PO MOTUWETHFRSA 07/31/20 07/31/20 Omeprazole [PriLOSEC] 40 mg PO DAILY 07/31/20 07/31/20 Previous Rx's Medication Instructions Recorded predniSONE 50 mg PO DAILY 5 Days #5 tab 11/17/20 Allergies Allergy/AdvReac Type Severity Reaction Status Date / Time ciprofloxacin [From Cipro] Allergy Rash/Hives Verified 11/17/20 14:19 orange Allergy Anaphylaxis Verified 11/17/20 14:19 phenazopyridine Allergy Rash/Hives Verified 11/17/20 14:19 [From Pyridium] sulfamethoxazole Allergy Rash/Hives Verified 11/17/20 14:19 [From Bactrim] trimethoprim [From Bactrim] Allergy Rash/Hives Verified 11/17/20 14:19 Review of Systems ROS Statement: Those systems with pertinent positive or pertinent negative responses have been documented in the HPI. ROS Other: All systems not noted in ROS Statement are negative. Past Medical History Past Medical History: Asthma, Thyroid Disorder Additional Past Medical History / Comment(s): kidney stone History of Any Multi-Drug Resistant Organisms: None Reported Past Surgical History: Appendectomy, Hernia Repair, Hysterectomy, Orthopedic Surgery, Tubal Ligation Additional Past Surgical History / Comment(s): rt hand, lithotripsy, thyroidectomy, rotator cuff Past Psychological History: No Psychological Hx Reported Smoking Status: Never smoker Past Alcohol Use History: None Reported Past Drug Use History: None Reported General Exam General appearance: alert, in no apparent distress Head exam: Present: atraumatic, normocephalic, normal inspection Eye exam: Present: normal appearance, PERRL, EOMI. Absent: scleral icterus, conjunctival injection, periorbital swelling ENT exam: Present: normal exam, mucous membranes moist Neck exam: Present: normal inspection. Absent: tenderness, meningismus, lymphadenopathy Respiratory exam: Present: normal lung sounds bilaterally. Absent: respiratory distress, wheezes, rales, rhonchi, stridor Cardiovascular Exam: Present: regular rate, normal rhythm, normal heart sounds. Absent: systolic murmur, diastolic murmur, rubs, gallop, clicks GI/Abdominal exam: Present: soft, normal bowel sounds. Absent: distended, tenderness, guarding, rebound, rigid Extremities exam: Present: normal inspection, full ROM, normal capillary refill, other (Positive well leg raise test on side.). Absent: tenderness, pedal edema, joint swelling, calf tenderness Neurological exam: Present: alert, oriented X3, CN II-XII intact Expanded Motor strength exam: RUE: 5, LUE: 5, RLE: 5, LLE: 5 Psychiatric exam: Present: normal affect, normal mood Skin exam: Present: warm, dry, intact, normal color. Absent: rash Course Vital Signs 11/17/20 11/17/20 14:17 15:41 Temperature 98.0 F Pulse Rate 97 66 Respiratory 18 18 Rate Blood Pressure 155/82 136/66 O2 Sat by Pulse 97 98 Oximetry Medical Decision Making - Medical Decision Making 89 female complaining of left flank and lower back pain. Labs, 1 L normal saline, 15 mg of Toradol, 125 mg of methylprednisone ordered. KUB ordered to check for kidney stones. Labs grossly unremarkable. KUB negative for stones. Case discussed with Dr. Schuster, decided was located discharge patient home. - Lab Data Result diagrams: 11/17/20 14:47 11/17/20 14:47 Lab Results 11/17/20 11/17/20 11/17/20 Range/Units 14:47 14:47 14:47 WBC 3.9 (3.8-10.6) k/uL RBC 4.82 (3.80-5.40) m/uL Hgb 13.5 (11.4-16.0) gm/dL Hct 40.4 (34.0-46.0) % MCV 83.7 (80.0-100.0) fL MCH 27.9 (25.0-35.0) pg MCHC 33.4 (31.0-37.0) g/dL RDW 14.4 (11.5-15.5) % Plt Count 185 (150-450) k/uL MPV 9.7 Neutrophils % 61 % Lymphocytes % 21 % Monocytes % 10 % Eosinophils % 4 % Basophils % 1 % Neutrophils # 2.4 (1.3-7.7) k/uL Lymphocytes # 0.8 L (1.0-4.8) k/uL Monocytes # 0.4 (0-1.0) k/uL Eosinophils # 0.2 (0-0.7) k/uL Basophils # 0.0 (0-0.2) k/uL Sodium 138 (137-145) mmol/L Potassium 4.7 (3.5-5.1) mmol/L Chloride 109 H (98-107) mmol/L Carbon Dioxide 18 L (22-30) mmol/L Anion Gap 11 mmol/L BUN 11 (7-17) mg/dL Creatinine 0.74 (0.52-1.04) mg/dL Est GFR (CKD-EPI)AfAm >90 (>60 ml/min/1.73 sqM) Est GFR (CKD-EPI)NonAf 88 (>60 ml/min/1.73 sqM) Glucose 95 (74-99) mg/dL Calcium 8.9 (8.4-10.2) mg/dL Total Bilirubin 0.7 (0.2-1.3) mg/dL AST 54 H (14-36) U/L ALT 47 H (4-34) U/L Alkaline Phosphatase 95 (38-126) U/L Total Protein 7.9 (6.3-8.2) g/dL Albumin 4.5 (3.5-5.0) g/dL Urine Color Colorless Urine Appearance Clear (Clear) Urine pH 6.5 (5.0-8.0) Ur Specific [place] 1.002 (1.001-1.035) Urine Protein Negative (Negative) Urine Glucose (UA) Negative (Negative) Urine Ketones Negative (Negative) Urine Blood Negative (Negative) Urine Nitrite Negative (Negative) Urine Bilirubin Negative (Negative) Urine Urobilinogen <2.0 (<2.0) mg/dL Ur Leukocyte Esterase Negative (Negative) - Radiology Data Radiology results: report reviewed, image reviewed KUB: Nonobstructive bowel gas pattern. Disposition Clinical Impression: Lumbar strain, Sciatica Disposition: HOME SELF-CARE Condition: Stable Instructions (If sedation given, give patient instructions): Sciatica (ED), Lumbar Radiculopathy (ED), Lower Back Exercises (ED) Additional Instructions: Please return to the Emergency Department if symptoms worsen or any other concerns. Follow-up with primary care in 2-4 days, potentially get prescription for physical therapy. Take prednisone as prescribed. Take daic-buy-qzrepfx pain medications as needed for conservative management. Prescriptions: predniSONE 50 mg PO DAILY 5 Days #5 tab Is patient prescribed a controlled substance at d/c from ED?: No Referrals: Hallie Petty MD [Primary Care Provider] - 1-2 days Time of Disposition: 15:45
[2020-11-17 15:16] LABS: Potassium 4.7 mmol/L (3.5-5.1)
--- NOTE | 2020-11-17 15:35 | XR ---
KUB HISTORY: Abdominal pain Frontal KUB and 2 images correlated prior exam 06/18/2019 Lung bases are clear. There is no evident pneumoperitoneum or bowel obstruction. Bone mineralization is stable. No pathologic calcification is evident. Calcifications within the pelvis are stable and li sondra represent phleboliths. IMPRESSION: Nonobstructive bowel gas pattern.
[2020-11-17 15:43] VITALS: BP 136/66; PULSE 66
== END 2020-11-17 16:18 | disposition home or self-care (01) ==
LOC: EC 14:16
DX: S39.012A Strain of muscle, fascia and tendon of lower back, initial encounter (principal); M54.42 Lumbago with sciatica, left side; J45.909 Unspecified asthma, uncomplicated; E07.9 Disorder of thyroid, unspecified; Z79.899 Other long term (current) drug therapy; Z79.890 Hormone replacement therapy; Z88.1 Allergy status to other antibiotic agents; Z88.2 Allergy status to sulfonamides; Z88.8 Allergy status to other drugs, medicaments and biological substances; Z91.018 Allergy to other foods; X58.XXXA Exposure to other specified factors, initial encounter
CPT/HCPCS: 36415; 80053; 85025; 81003; 74018; 99284; 96374; 96375; 96361; J2930; J1885

== ENCOUNTER → 2021-01-30 | Outpatient (CLI) | payer OTHER ==
--- NOTE | 2021-01-30 16:08 | XR ---
KUB HISTORY: Left-sided abdominal pain, history kidney stones, M 53.9 KUB correlated prior KUB 11/17/2020 There is an oval calcification overlying the left renal pelvis measuring document the 18 x 11 mm. Mul tiple calcifications are present within the pelvis similar to prior exam, findings may represent phle boliths. No evident bowel obstruction or pneumoperitoneum. Patient is rotated. There may be spinal cu rvature. impression: Left-sided nephrolithiasis.
== END | disposition home or self-care (01) ==
LOC: RADXRMAIN 15:18
PROVIDERS: ATTEND Internal Medicine
DX: N20.0 Calculus of kidney (principal)
CPT/HCPCS: 74018

== ENCOUNTER → 2021-02-07 | Outpatient (CLI) | payer OTHER ==
--- NOTE | 2021-02-09 09:36 | CT ---
EXAMINATION TYPE: CT abdomen pelvis wo con DATE OF EXAM: 02/07/2021 COMPARISON: KUB 01/30/2021, CT 06/18/2019 HISTORY: kidney stones CT DLP: 679.90 mGycm Automated exposure control for dose reduction was used. TECHNIQUE: Helical acquisition of images from the lung bases through the pelvis. FINDINGS: Lack of intravenous contrast could compromise sensitivity. LUNG BASES: No significant abnormality is appreciated. AORTA: No significant abnormality is appreciated. LIVER/GB: The liver is enlarged. Gallbladder is absent.. PANCREAS: No significant abnormality is seen. SPLEEN: No significant abnormality is seen. ADRENALS: No significant abnormality is seen. KIDNEYS: No significant abnormality is seen. REPRODUCTIVE ORGANS: Uterus is not seen. URINARY BLADDER: No significant abnormality is seen. BOWEL: No significant abnormality is seen. Appendix is not seen. Retained fecal debris present throu ghout the distribution of the colon. FREE AIR: No Free Air is visible. ASCITES: None visible. PELVIC ADENOPATHY: None visualized. RETROPERITONEAL ADENOPATHY: No Retroperitoneal Adenopathy visible. OSSEOUS STRUCTURES: Degenerative disc changes, facet arthropathy noted at the lower lumbar spine IMPRESSION: NONCONTRAST EXAM. Postop changes. Degenerative disc disease. Facet arthropathy. Hepatomegaly. Correla te for fecal stasis.
== END | disposition home or self-care (01) ==
LOC: RADCTMAIN 17:49
PROVIDERS: ATTEND Internal Medicine
DX: R16.0 Hepatomegaly, not elsewhere classified (principal)
CPT/HCPCS: 74176

== ENCOUNTER → 2021-08-22 | Outpatient (CLI) | payer OTHER ==
--- NOTE | 2021-08-23 15:39 | US ---
EXAMINATION TYPE: US transvaginal DATE OF EXAM: 08/22/2021 COMPARISON: NONE CLINICAL HISTORY: N73.0 PID. acute PID from unknown origin, itching, soreness, h/o hysterectomy TECHNIQUE: TV. Transvaginal sonographic images Date of LMP: 27 yrs ago EXAM MEASUREMENTS: Uterus: Surgically absent Endometrial Stripe: Surgically absent Right Ovary: not seen Left Ovary: not seen 1. Uterus: Surgically absent 2. Endometrium: Surgically absent 3. Right Ovary: not seen due to bowel gas and or atrophy 4. Left Ovary: not seen due to bowel gas and or atrophy 5. Bilateral Adnexa: wnl 6. Posterior cul-de-sac: wnl IMPRESSION: Postop changes, no evident abnormality
== END | disposition home or self-care (01) ==
LOC: RADUSWWP 16:45
PROVIDERS: ATTEND Internal Medicine
DX: N73.0 Acute parametritis and pelvic cellulitis (principal)
CPT/HCPCS: 76830

== ENCOUNTER 2022-05-22 19:25 | Emergency (ER) | payer OTHER ==
[2022-05-22 20:31] VITALS: TEMP 98.2
--- NOTE | 2022-05-22 20:59 | XR ---
EXAMINATION TYPE: XR KUB DATE OF EXAM: 05/22/2022 8:41 PM INDICATION: Patient age:Female; 62 years old; Reason for study: hernia pain increasing, LLQ abd pain; COMPARISON: 01/30/2021 TECHNIQUE: One radiographic view of the abdomen was obtained. FINDINGS: The bowel gas pattern is nonspecific without dilated loops of small or large bowel. There i s no evidence for organomegaly or pneumoperitoneum. The osseous structures are intact. No abnormal calcifications are present. Fecal material and gas are demonstrated throughout the colon and rectum. IMPRESSION: Nonspecific bowel gas pattern without radiographic evidence for acute process.
[2022-05-22] MEDS ORDERED: SODIUM CHLORIDE 0.9% 1,000 ML IV STA (23:43)
[2022-05-22] MEDS ORDERED: MORPHINE SULFATE 4 MG/ML SYRINGE IV STA (23:43)
[2022-05-22] MEDS ORDERED: ONDANSETRON 4 MG/2 ML VIAL IVP STA (23:43)
--- NOTE | 2022-05-22 23:49 | ED ---
Abdominal Pain HPI - General Chief Complaint: Abdominal Pain Stated Complaint: Poss ruptured hernia Time Seen by Provider: 05/22/22 23:36 Source: patient, family, RN notes reviewed Mode of arrival: wheelchair - History of Present Illness Initial Comments: This is a pleasant 62-year-old female with a history of asthma and thyroid disease. Patient has surgical history as listed to include left inguinal herniorrhaphy a few years ago by Dr. Garcia. Patient states she was having a bowel movement last night and ended up having a large bowel movement and immediately after that started having sharp pain in her left inguinal area. Patient believes she may have done something to her hernia. Patient states that movement and coughing exacerbates the pain. Patient has had no nausea or vomiting. No problems with eating. Has not had a bowel movement today. Patient did go to work but could not tolerate the pain. No headache, no fever or chills, no changes in vision or hearing, no sore throat or difficulty with speech, no neck pain, no chest pain or shortness of breath, no nausea or vomiting, no changes in urination or bowel movements, no numbness o r tingling, no extremity pain, no skin rashes or lesions. Past medical, surgical, social, and family history reviewed. - Related Data Home Medications Medication Instructions Recorded Confirmed Levothyroxine Sodium [Synthroid] 187.5 mcg PO TANG 02/25/17 09/02/21 amLODIPine BESYLATE/BENAZEPRIL 1 cap PO QAM 02/25/17 09/02/21 [Lotrel 5-20 mg Capsule] diphenhydrAMINE HCL [Benadryl] 25 mg PO HS 06/18/19 09/02/21 Alendronate Sodium [Fosamax] 70 mg PO TANG 07/31/20 09/02/21 Atorvastatin [Lipitor] 40 mg PO HS 07/31/20 09/02/21 Baclofen 10 mg PO BID 07/31/20 09/02/21 Cetirizine HCl [Zyrtec] 10 mg PO DAILY 07/31/20 09/02/21 EPINEPHrine (Auto Inject) [Epipen] 0.3 mg IM ONCE PRN 07/31/20 09/02/21 Ibuprofen [Motrin] 600 mg PO Q8H PRN 07/31/20 09/02/21 Levothyroxine Sodium [Synthroid] 125 mcg PO MOTUWETHFRSA 07/31/20 09/02/21 Omeprazole [PriLOSEC] 40 mg PO DAILY 07/31/20 09/02/21 Allergies Allergy/AdvReac Type Severity Reaction Status Date / Time ciprofloxacin [From Cipro] Allergy Rash/Hives Verified 05/22/22 20:31 orange Allergy Anaphylaxis Verified 05/22/22 20:31 phenazopyridine Allergy Rash/Hives Verified 05/22/22 20:31 [From Pyridium] sulfamethoxazole Allergy Rash/Hives Verified 05/22/22 20:31 [From Bactrim] trimethoprim [From Bactrim] Allergy Rash/Hives Verified 05/22/22 20:31 Review of Systems ROS Statement: Those systems with pertinent positive or pertinent negative responses have been documented in the HPI. ROS Other: All systems not noted in ROS Statement are negative. Past Medical History Past Medical History: Asthma, Thyroid Disorder Additional Past Medical History / Comment(s): kidney stone, hernia, UTI History of Any Multi-Drug Resistant Organisms: None Reported Past Surgical History: Appendectomy, Hernia Repair, Hysterectomy, Orthopedic Surgery, Tubal Ligation Additional Past Surgical History / Comment(s): rt hand, lithotripsy, th yroidectomy, rotator cuff Past Anesthesia/Blood Transfusion Reactions: No Reported Reaction Past Psychological History: No Psychological Hx Reported Smoking Status: Never smoker Past Alcohol Use History: None Reported Past Drug Use History: None Reported - Past Family History Father Family Medical History: Cancer Additional Family Medical History / Comment(s): Lymph nodes. General Exam - General Exam Comments Initial Comments: 62-year-old female in moderate distress secondary to left inguinal/pelvic pain. Does not appear to be ill or toxic. Cranial nerves II through XII grossly intact. Appears stated age. Appears to be adequately hydrated. Capillary refill less than 2 seconds. General appearance: alert, in distress Head exam: Present: atraumatic, normocephalic, normal inspection Eye exam: Present: normal appearance, PERRL, EOMI. Absent: scleral icterus, conjunctival injection, periorbital swelling ENT exam: Present: normal exam, mucous membranes moist Neck exam: Present: normal inspection. Absent: tenderness, meningismus, lymphadenopathy Respiratory exam: Present: normal lung sounds bilaterally. Absent: respiratory distress, wheezes, rales, rhonchi, stridor Cardiovascular Exam: Present: regular rate, normal rhythm, normal heart sounds. Absent: systolic murmur, diastolic murmur, rubs, gallop, clicks GI/Abdominal exam: Present: soft, tenderness, normal bowel sounds, other (Patient has been some tenderness in the left lower quadrant but mostly over the left inguinal canal area. There is a pulsation noted there with cough. However no obvious evidence of incarcerated hernia. No skin rashes or lesions. No erythema.). Absent: distended, guarding, rebound, rigid, organomegaly, bruit, pulsatile mass, hernia (No definitive hernia) Extremities exam: Present: normal inspection, full ROM, normal capillary refill. Absent: tenderness, pedal edema, joint swelling, calf tenderness Back exam: Present: normal inspection Neurological exam: Present: alert, oriented X3, CN II-XII intact Psychiatric exam: Present: normal affect, normal mood Skin exam: Present: warm, dry, intact, normal color. Absent: rash Course Vital Signs 05/22/22 05/23/22 20:25 00:31 Temperature 98.2 F Pulse Rate 68 66 Respiratory 22 16 Rate Blood Pressure 145/81 116/64 O2 Sat by Pulse 99 98 Oximetry - Reevaluation(s) Reevaluation #1: 05/23/22 01:31 Medical record is reviewed Symptoms are improved here in the emergency department Patient is informed of results and questions answered Patient in no distress Reevaluation #2: 05/23/22 01:31 Patient has mild hepatomegaly, appendix was not seen, however there is no signs of information per radiology. Minimal sigmoid diverticulosis without evidence of diverticulitis. No urinary tract abnormality, no mass, no mesenteric edema no evidence of bowel obstruction. Specifically no evidence of inguinal hernia. Reevaluation #3: 05/23/22 01:37 The case was discussed in detail with ED attending physician. Presentation, findings, treatment plan discussed in detail. Medical Decision Making - Medical Decision Making Patient has pain isolated to the left inguinal area. Mild tenderness left lower quadrant and left pelvic area. KUB was nondiagnostic. Will order further diagn ostic testing to include lactic acid and computed tomography scan. Patient given morphine and Zofran. We'll keep nothing by mouth for now. Patient's workup essentially negative. No evidence of inguinal hernia. I suspect the patient has a soft tissue injury to the inguinal ligament or possibly the inguinal ring Patient was reevaluated prior to discharge. Patient is demented stable. Afebrile. Patient did have pain with hip flexion and adduction versus resistance. Again, there is no inguinal mass ascertained. Had a long discussion with the patient about possible etiologies. This certainly could be soft tissue injury. However given the patient's history of inguinal surgery in that area going to have her follow up with her surgeon. She could certainly have some pathology related to the internal inguinal ring. She concurs with this treatment plan. Patient was told to return to the ER for any signs or symptoms worsen. Told to return immediately if any other problems arise. All questions answered. Treatment plan discussed. Patient in agreement Every effort has been made to ensure accuracy of this dictation. However, due to the limitations of electronic medical records and dictation devices, errors in charting still occur. Visitor Services Representative Dr. Foster - Lab Data Result diagrams: 05/23/22 00:03 05/23/22 00:03 Lab Results 05/23/22 05/23/22 05/23/22 Range/Units 00:03 00:03 00:03 WBC 6.0 (3.8-10.6) k/uL RBC 4.75 (3.80-5.40) m/uL Hgb 12.7 (11.4-16.0) gm/dL Hct 41.0 (34.0-46.0) % MCV 86.3 (80.0-100.0) fL MCH 26.8 (25.0-35.0) pg MCHC 31.0 (31.0-37.0) g/dL RDW 13.6 (11.5-15.5) % Plt Count 199 (150-450) k/uL MPV 10.8 Neutrophils % 52 % Lymphocytes % 32 % Monocytes % 8 % Eosinophils % 6 % Basophils % 1 % Neutrophils # 3.1 (1.3-7.7) k/uL Lymphocytes # 1.9 (1.0-4.8) k/uL Monocytes # 0.5 (0-1.0) k/uL Eosinophils # 0.3 (0-0.7) k/uL Basophils # 0.1 (0-0.2) k/uL Sodium 140 (137-145) mmol/L Potassium 4.2 (3.5-5.1) mmol/L Chloride 106 (98-107) mmol/L Carbon Dioxide 21 L (22-30) mmol/L Anion Gap 13 mmol/L BUN 19 H (7-17) mg/dL Creatinine 0.91 (0.52-1.04) mg/dL Est GFR (CKD-EPI)AfAm 78 (>60 ml/min/1.73 sqM) Est GFR (CKD-EPI)NonAf 67 (>60 ml/min/1.73 sqM) Glucose 104 H (74-99) mg/dL Plasma Lactic Acid Jonel 1.1 (0.7-2.0) mmol/L Calcium 9.4 (8.4-10.2) mg/dL Total Bilirubin 0.4 (0.2-1.3) mg/dL AST 25 (14-36) U/L ALT 29 (4-34) U/L Alkaline Phosphatase 106 (38-126) U/L Total Protein 7.3 (6.3-8.2) g/dL Albumin 4.4 (3.5-5.0) g/dL Urine Color Urine Appearance (Clear) Urine pH (5.0-8.0) Ur Specific [place] (1.001-1.035) Urine Protein (Negative) Urine Glucose (UA) (Negative) Urine Ketones (Negative) Urine Blood (Negative) Urine Nitrite (Negative) Urine Bilirubin (Negative) Urine Urobilinogen (<2.0) mg/dL Ur Leukocyte Esterase (Negative) 05/23/22 Range/Units 00:35 WBC (3.8-10.6) k/uL RBC (3.80-5.40) m/uL Hgb (11.4-16.0) gm/dL Hct (34.0-46.0) % MCV (80.0-100.0) fL MCH (25.0-35.0) pg MCHC (31.0-37.0) g/dL RDW (11.5-15.5) % Plt Count (150-450) k/uL MPV Neutrophils % % Lymphocytes % % Monocytes % % Eosinophils % % Basophils % % Neutrophils # (1.3-7.7) k/uL Lymphocytes # (1.0-4.8) k/uL Monocytes # (0-1.0) k/uL Eosinophils # (0-0.7) k/uL Basophils # (0-0.2) k/uL Sodium (137-145) mmol/L Potassium (3.5-5.1) mmol/L Chloride (98-107) mmol/L Carbon Dioxide (22-30) mmol/L Anion Gap mmol/L BUN (7-17) mg/dL Creatinine (0.52-1.04) mg/dL Est GFR (CKD-EPI)AfAm (>60 ml/min/1.73 sqM) Est GFR (CKD-EPI)NonAf (>60 ml/min/1.73 sqM) Glucose (74-99) mg/dL Plasma Lactic Acid Jonel (0.7-2.0) mmol/L Calcium (8.4-10.2) mg/dL Total Bilirubin (0.2-1.3) mg/dL AST (14-36) U/L ALT (4-34) U/L Alkaline Phosphatase (38-126) U/L Total Protein (6.3-8.2) g/dL Albumin (3.5-5.0) g/dL Urine Color Light Yellow Urine Appearance Clear (Clear) Urine pH 6.0 (5.0-8.0) Ur Specific [place] 1.023 (1.001-1.035) Urine Protein Negative (Negative) Urine Glucose (UA) Negative (Negative) Urine Ketones Negative (Negative) Urine Blood Negative (Negative) Urine Nitrite Negative (Negative) Urine Bilirubin Negative (Negative) Urine Urobilinogen <2.0 (<2.0) mg/dL Ur Leukocyte Esterase Negative (Negative) - Radiology Data Radiology results: report reviewed, image reviewed Disposition Clinical Impression: Strain of left inguinal region, Pain of left inguinal ring Disposition: HOME SELF-CARE Condition: Good Instructions (If sedation given, give patient instructions): Inguinal Hernia (ED), Groin Strain (ED) Additional Instructions: Stay hydrated, take a daily fiber supplement. Also take Colace daily. Use [id number] acetaminophen and/or ibuprofen for pain control. No lifting over 5 pounds. Follow-up with your surgeon as discussed. Follow-up with your regular physician as directed. Return to the ER immediately if any symptoms worsen, new symptoms arise, or any other problems develop. Is patient prescribed a controlled substance at d/c from ED?: No Referrals: Nilda Garcia, [Doctor of Osteopathic Medicine] - 05/25/22 Hallie Petty MD [Primary Care Provider] - 05/25/22 Time of Disposition: 01:36
--- NOTE | 2022-05-23 00:37 | CT ---
EXAMINATION TYPE: CT abdomen pelvis w con DATE OF EXAM: 05/23/2022 COMPARISON: None HISTORY: Left pelvic and inguinal pain. poss ruptured hernia, h/o hernia repair surgery CT DLP: 1162 mGycm Automated exposure control for dose reduction was used. CONTRAST: Performed with IV Contrast, patient injected with 100 mL of Isovue 300. Images obtained from the diaphragm to the floor the pelvis with the IV contrast. Lung bases are clear. No pleural effusion. Heart size is normal. No pericardial effusion. Liver splee n stomach pancreas appear intact. The bowel is not dilated. Gallbladder appears absent. There is no adrenal mass. Kidneys show satisfactory contrast opacification. There is no hydronephrosi s. Delayed images show normal renal excretion. There is no retroperitoneal adenopathy. Ureters are no t dilated. Bladder distends smoothly. No inguinal hernia. No free fluid in the pelvis. There are some sigmoid diverticula. No diverticulitis. No pelvic mass. There is no mesenteric edema. No ascites or free air. No sign of a bowel obstruction. The lumbar vertebra have normal alignment. Posterior elements are intact. No compression fracture. Th ere is narrowing at L5-S1 disc space with spurring and vacuum disc. The bony pelvis is intact. The hi p joints are intact. IMPRESSION: Mild hepatomegaly. Liver measures 21 cm. Appendix not seen. No sign of thickened appendix. No evidence of inguinal hernia. No inguinal mass. Minimal sigmoid diverticulosis.
[2022-05-23 00:49] LABS: Albumin 4.4 g/dL (3.5-5.0); Calcium 9.4 mg/dL (8.4-10.2); Potassium 4.2 mmol/L (3.5-5.1); Total Bilirubin 0.4 mg/dL (0.2-1.3); Total Protein 7.3 g/dL (6.3-8.2)
[2022-05-23 00:50] VITALS: RESP 16
[2022-05-23 00:56] LABS: Appearance,Urine Clear (Clear); Bilirubin,Urine Negative (Negative); Blood,Urine Negative (Negative); Color,Urine Light Yellow; Glucose,Urine (UA) Negative (Negative); Ketones,Urine Negative (Negative); Leukocyte Esterase,Urine Negative (Negative); Nitrite,Urine Negative (Negative); Protein,Urine Negative (Negative); Specific Gravity,Urine 1.023 (1.001-1.035); Urobilinogen,Urine <2.0 mg/dL (<2.0)
[2022-05-23 01:08] LABS: Basophils # (A) 0.1 k/uL (0-0.2); Basophils % (A) 1 %; Eosinophils # (A) 0.3 k/uL (0-0.7); Eosinophils % (A) 6 %; HGB 12.7 gm/dL (11.4-16.0); Lymphocytes # (A) 1.9 k/uL (1.0-4.8); Lymphocytes % (A) 32 %; MCH 26.8 pg (25.0-35.0); MCV 86.3 fL (80.0-100.0); Mean Platelet Volume 10.8; Monocytes # (A) 0.5 k/uL (0-1.0); Monocytes % (A) 8 %; Neutrophils # (A) 3.1 k/uL (1.3-7.7); Neutrophils % (A) 52 %; Platelet Count 199 k/uL (150-450); RBC 4.75 m/uL (3.80-5.40); RDW 13.6 % (11.5-15.5)
[2022-05-23 01:56] VITALS: BP 123/76; PULSE 62
== END 2022-05-23 01:55 | disposition home or self-care (01) ==
LOC: EC 19:25
DX: S76.212A Strain of adductor muscle, fascia and tendon of left thigh, initial encounter (principal); Z79.899 Other long term (current) drug therapy; J45.909 Unspecified asthma, uncomplicated; E07.9 Disorder of thyroid, unspecified; Z88.1 Allergy status to other antibiotic agents; Z91.018 Allergy to other foods; Z88.8 Allergy status to other drugs, medicaments and biological substances; Z88.2 Allergy status to sulfonamides; X58.XXXA Exposure to other specified factors, initial encounter
CPT/HCPCS: 36415; 80053; 83605; 85025; 81003; 74018; 74177; 96374; 96375; 96361; 99284; J2270; J2405; Q9967

== ENCOUNTER 2022-08-23 18:14 | Emergency (ER) | payer OTHER ==
[2022-08-23] MEDS ORDERED: SODIUM CHLORIDE 0.9% 500 ML 500 ML IV STA (18:30)
[2022-08-23] MEDS ORDERED: FAMOTIDINE 20 MG/2 ML VIAL IV STA (18:30)
[2022-08-23] MEDS ORDERED: LORazepam 2 MG/ML INJ IV STA (18:30)
[2022-08-23] MEDS ORDERED: methylPREDNISolone SOD SUCCI 125 MG/2 ML VIAL IV STA (18:30)
[2022-08-23 18:48] VITALS: TEMP 98.3
--- NOTE | 2022-08-23 18:55 | ED ---
General Adult HPI - General Chief complaint: Allergic Reaction Stated complaint: Allergic Reaction Time Seen by Provider: 08/23/22 18:22 Source: patient Mode of arrival: ambulatory Limitations: no limitations - History of Present Illness Initial comments: Patient presents to the ED for evaluation complaining of having an ALLERGIC reaction. Patient states that she ate a sub at [employer] about 2 hours ago, and about 2 minutes after eating the sub, she developed an ALLERGIC reaction with symptoms of diffuse body erythema, diffuse pruritus and mild dyspnea. Patient states that she took 2 Benadryl tabs at that time, and she states that her symptoms seem to be improving. Patient also admits to feeling very anxious and having a little difficulty swallowing, but she denies tongue/lip swelling. Patient denies having any pain, fever or chills, headache, focal neuro deficit, chest pain, cough or cold symptoms, palpitations, dizziness, syncope, abdominal pain, nausea/vomiting/diarrhea, or any other symptoms or complaints. Patient states that she has a severe orange ALLERGY, but she states that there should not have been any oranges in the sub that she ate from [employer]. Patient denies any known allergen or new medication exposure. - Related Data Home Medications Medication Instructions Recorded Confirmed Levothyroxine Sodium [Synthroid] 187.5 mcg PO TANG 02/25/17 09/02/21 amLODIPine BESYLATE/BENAZEPRIL 1 cap PO QAM 02/25/17 09/02/21 [Lotrel 5-20 mg Capsule] diphenhydrAMINE HCL [Benadryl] 25 mg PO HS 06/18/19 09/02/21 Alendronate Sodium [Fosamax] 70 mg PO TANG 07/31/20 09/02/21 Atorvastatin [Lipitor] 40 mg PO HS 07/31/20 09/02/21 Baclofen 10 mg PO BID 07/31/20 09/02/21 Cetirizine HCl [Zyrtec] 10 mg PO DAILY 07/31/20 09/02/21 EPINEPHrine (Auto Inject) [Epipen] 0.3 mg IM ONCE PRN 07/31/20 09/02/21 Ibuprofen [Motrin] 600 mg PO Q8H PRN 07/31/20 09/02/21 Levothyroxine Sodium [Synthroid] 125 mcg PO MOTUWETHFRSA 07/31/20 09/02/21 Omeprazole [PriLOSEC] 40 mg PO DAILY 07/31/20 09/02/21 Previous Rx's Medication Instructions Recorded predniSONE [Deltasone] 20 mg PO BID #10 tab 08/23/22 Allergies Allergy/AdvReac Type Severity Reaction Status Date / Time ciprofloxacin [From Cipro] Allergy Rash/Hives Verified 08/23/22 18:37 orange Allergy Anaphylaxis Verified 08/23/22 18:37 phenazopyridine Allergy Rash/Hives Verified 08/23/22 18:37 [From Pyridium] sulfamethoxazole Allergy Rash/Hives Verified 08/23/22 18:37 [From Bactrim] trimethoprim [From Bactrim] Allergy Rash/Hives Verified 08/23/22 18:37 Review of Systems ROS Statement: Those systems with pertinent positive or pertinent negative responses have been documented in the HPI. ROS Other: All systems not noted in ROS Statement are negative. Past Medical History Past Medical History: Asthma, Hyperlipidemia, Thyroid Disorder Additional Past Medical History / Comment(s): kidney stone, hernia, UTI History of Any Multi-Drug Resistant Organisms: None Reported Past Surgical History: Appendectomy, Hernia Repair, Hysterectomy, Orthopedic S urgery, Tubal Ligation Additional Past Surgical History / Comment(s): rt hand, lithotripsy, thyroidectomy, rotator cuff Past Anesthesia/Blood Transfusion Reactions: No Reported Reaction Past Psychological History: No Psychological Hx Reported Smoking Status: Never smoker Past Alcohol Use History: None Reported Past Drug Use History: None Reported - Past Family History Father Family Medical History: Cancer Additional Family Medical History / Comment(s): Lymph nodes. General Exam Limitations: no limitations General appearance: alert Head exam: Present: atraumatic, normocephalic Eye exam: Present: normal appearance, PERRL, EOMI ENT exam: Present: normal oropharynx, mucous membranes moist, other (No evidence of tongue/lip/pharyngeal swelling or angioedema on exam) Neck exam: Present: other (Trachea is in midline) Respiratory exam: Present: normal lung sounds bilaterally. Absent: respiratory distress, wheezes, rales, rhonchi, stridor Cardiovascular Exam: Present: regular rate, normal rhythm, normal heart sounds, other (Normal radial pulses bilaterally) GI/Abdominal exam: Present: soft. Absent: distended, tenderness, guarding Extremities exam: Absent: pedal edema Neurological exam: Present: alert, oriented X3. Absent: motor sensory deficit Psychiatric exam: Present: anxious Skin exam: Present: warm, dry, intact, other (Diffuse erythema/flushing of skin is noted) Course Vital Signs 08/23/22 08/23/22 18:34 19:04 Temperature 98.3 F Pulse Rate 102 H Respiratory 26 H 28 H Rate Blood Pressure 139/77 O2 Sat by Pulse 98 Oximetry - Reevaluation(s) Reevaluation #1: 08/23/22 20:46 Patient's erythema/flushing has now completely resolved, and she continues to have no evidence of oral/pharyngeal angioedema on exam. Patient remains alert and breathing comfortably with clear breath sounds bilaterally and a normal room air oxygen saturation. Patient states that her ALLERGIC symptoms have now completely resolved, and she feels comfortable being discharged home with her daughter at this time. Patient and daughter were counseled about ALLERGIC reactions, and they were clearly explained return and follow-up instructions. Patient was instructed to continue taking Benadryl as directed/as needed for ALLERGIC symptoms, and will discharge her home with a short course of prednisone. Patient feels comfortable with this plan. Disposition Clinical Impression: Allergic reaction Disposition: HOME SELF-CARE Condition: Stable Instructions (If sedation given, give patient instructions): General Allergic Reaction (ED) Additional Instructions: Return to the ER immediately should you develop trouble breathing or swallowing, tongue/lip/throat swelling, feeling dizzy or faint, or new or worsening symptoms. Follow up closely with your primary care provider. Prescriptions: predniSONE [Deltasone] 20 mg PO BID #10 tab Is patient prescribed a controlled substance at d/c from ED?: No Referrals: Hallie Petty MD [Primary Care Provider] - 1-2 days Time of Disposition: 20:50
[2022-08-23 21:55] VITALS: BP 138/74; PULSE 87; RESP 15
== END 2022-08-23 22:10 | disposition home or self-care (01) ==
LOC: EC 18:14
DX: T78.1XXA Other adverse food reactions, not elsewhere classified, initial encounter (principal); J45.909 Unspecified asthma, uncomplicated; E07.9 Disorder of thyroid, unspecified; E78.5 Hyperlipidemia, unspecified; Z79.890 Hormone replacement therapy; Z88.2 Allergy status to sulfonamides; Z90.710 Acquired absence of both cervix and uterus; Z90.89 Acquired absence of other organs; Z98.51 Tubal ligation status; Z79.899 Other long term (current) drug therapy; Z91.018 Allergy to other foods; Z88.1 Allergy status to other antibiotic agents; Z79.2 Long term (current) use of antibiotics; Z87.442 Personal history of urinary calculi
CPT/HCPCS: 99282; 96374 ×2; 96375 ×2; 96361; 99283; J2060; J2930

== ENCOUNTER → 2022-09-03 | Outpatient (CLI) | payer OTHER ==
--- NOTE | 2022-09-03 19:04 | MM ---
Reason for Exam: Screening (asymptomatic). Last mammogram was performed 1 year(s) and 2 month(s) ago. Patient History: Menarche at age 11. First Full-Term at age 21. Hysterectomy at age 34. Postmenopausal. Sister had breast cancer at or over age 50. Risk Values: Mercedes 5 year model risk: 3.0%. NCI Lifetime model risk: 12.4%. Prior Study Comparison: 07/04/2021 Bilateral MG screening mammo w CAD - 2, [facility]. Tissue Density: There are scattered fibroglandular densities. Findings: Analyzed By CAD. There is no suspicious group of microcalcifications or new suspicious mass in either breast. Overall Assessment: Benign, BI-RAD 2 Management: Screening Mammogram of both breasts in 1 year. 1. Patient should continue monthly self breast exams. 2. A clinical breast exam by your physician is recommended on an annual basis. 3. This exam should not preclude additional follow-up of suspicious palpable abnormalities. Electronically signed and approved by: Madhavi Cao M.D. Radiologist
== END | disposition home or self-care (01) ==
LOC: RADMAMWWP 07:11
PROVIDERS: ATTEND Internal Medicine
DX: Z12.31 Encounter for screening mammogram for malignant neoplasm of breast (principal); Z78.0 Asymptomatic menopausal state; Z80.3 Family history of malignant neoplasm of breast; Z90.710 Acquired absence of both cervix and uterus
CPT/HCPCS: 77063; 77067

== ENCOUNTER → 2022-09-07 | Outpatient (CLI) | payer OTHER ==
--- NOTE | 2022-09-07 11:31 | US ---
EXAMINATION TYPE: US carotid duplex BILAT DATE OF EXAM: 09/07/2022 COMPARISON: NONE CLINICAL HISTORY: I65.23 CAROTID STENOSIS. TECHNIQUE: Carotid duplex ultrasound examination. Indirect Doppler criteria was utilized. FINDINGS: EXAM MEASUREMENTS: RIGHT: Peak Systolic Velocity (PSV) cm/sec ----- Right CCA: 93.1 ----- Right ICA: 99.9 ----- Right ECA: 99.2 ICA/CCA ratio: 1.07 RIGHT: End Diastole cm/sec ----- Right CCA: 30.6 ----- Right ICA: 43.5 ----- Right ECA: 12.9 LEFT: Peak Systolic Velocity (PSV) cm/sec ----- Left CCA: 100.0 ----- Left ICA: 96.6 ----- Left ECA: 103.0 ICA/CCA ratio: 0.97 LEFT: End Diastole cm/sec ----- Left CCA: 33.0 ----- Left ICA: 38.4 ----- Left ECA: 13.8 VERTEBRALS (direction of flow): Right Vertebral: Antegrade Left Vertebral: Antegrade Rhythm: Normal FOOD AND BEVERAGE ASSISTANT NOTES: No significant stenosis seen. No elevated velocities. IMPRESSION: Less than 50% stenosis of the bilateral carotid bifurcations. Criteria for Assigning % of Stenosis / Diameter reduction (Estimation based on the indirect measurements of the internal carotid artery velocities (ICA PSV). 1. Normal (no stenosis)=ICA PSV < 125 cm/s: ratio < 2.0: ICA EDV<40 cm/s. 2. Less than 50% stenosis=ICA PSV < 125 cm/s: ratio < 2.0: ICA EDV<40 cm/s. 3. 50 to 69% stenosis=ICA PSV of 125 to 230 cm/s: ration 2.0 ? 4.0: ICA EDV 40-100 cm/s. 4. Greater than 70% stenosis to near occlusion= ICA PSV > 230 cm/s: ratio > 4.0: ICA EDV > 100 cm/s. 5. Near occlusion= ICA PSV velocities may be low or undetectable: variable ratio and ICA EDV. 6. Total occlusion=unable to detect flow.
== END | disposition home or self-care (01) ==
LOC: RADUSWWP 10:46
PROVIDERS: ATTEND Internal Medicine
DX: I65.23 Occlusion and stenosis of bilateral carotid arteries (principal)
CPT/HCPCS: 93880

== ENCOUNTER → 2023-04-20 | Outpatient (CLI) | payer OTHER ==
--- NOTE | 2023-04-21 10:46 | CA ---
Transthoracic Echo Report Name: Julianna Storm Age: 63 Gender: F : 1960 Exam Date: 04/20/2023 16:00 Exam Location: [place] [facility] Ht (in): 62 Wt (lb): 195 Ordering Physician: Hallie Petty MD Attending/Referring Phys: Stick Roller Kaylin Huggins [facility] Procedure CPT: Indications: I34.0 Cardiac Hx: Technical Quality: Fair Contrast 1: Total Dose (mL): Contrast 2: Total Dose (mL): MEASUREMENTS (Male / Female) Normal Values 2D ECHO LV Diastolic Diameter PLAX 4.3 cm 4.2 - 5.9 / 3.9 - 5.3 cm LV Systolic Diameter PLAX 2.8 cm IVS Diastolic Thickness 0.9 cm 0.6 - 1.0 / 0.6 - 0.9 cm LVPW Diastolic Thickness 0.8 cm 0.6 - 1.0 / 0.6 - 0.9 cm LV Relative Wall Thickness 0.4 LVOT Diameter 2.0 cm Ascending Aorta Diameter 3.5 cm M-MODE Aortic Root Diameter MM 2.8 cm LA Systolic Diameter MM 3.5 cm LA Ao Ratio MM 1.3 AV Cusp Separation MM 2.1 cm DOPPLER AV Peak Velocity 154.0 cm/s AV Peak Gradient 9.5 mmHg AV Mean Velocity 114.0 cm/s AV Mean Gradient 5.6 mmHg AV Velocity Time Integral 33.9 cm LVOT Peak Velocity 130.2 cm/s LVOT Peak Gradient 6.8 mmHg LVOT Velocity Time Integral 27.2 cm LVOT Stroke Volume 88.9 cm??? LVOT Stroke Volume Index 47.0 ml/m??? LVOT Cardiac Index 3008.9 cm???/min???m??? AV Area Cont Eq vti 2.6 cm??? AV Area Cont Eq pk 2.8 cm??? Mitral E Point Velocity 70.9 cm/s Mitral A Point Velocity 89.0 cm/s Mitral E to A Ratio 0.8 MV Deceleration Time 169.7 ms LV E' Lateral Velocity 13.3 cm/s Mitral E to LV E' Lateral Ratio 5.3 LV E' Septal Velocity 8.8 cm/s Mitral E to LV E' Septal Ratio 8.1 Right Atrial Pressure 3.0 mmHg FINDINGS Left Ventricle Normal Left ventricular size, wall thickness, systolic function with no obvious regional wall motion abnormalities. Left ventricular ejection fraction is estimated at 55-60%. Right Ventricle Normal right ventricular size. Unable to estimate the right ventricular systolic pressure. Right Atrium Normal right atrial size. Left Atrium Mild left atrial dilatation. Mitral Valve Structurally normal mitral valve. Mild mitral regurgitation. Aortic Valve Trileaflet aortic valve. No aortic valve stenosis or regurgitation. Tricuspid Valve Structurally normal tricuspid valve. No tricuspid regurgitation. Pulmonic Valve Structurally normal pulmonic valve. No pulmonic regurgitation. Pericardium No pericardial effusion. Echo free space anterior to the right ventricle likely represents a fat pad. Aorta Normal size aortic root and proximal ascending aorta. CONCLUSIONS Normal LV size and systolic function mildly dilated left atrium. Mild mitral insufficiency. No pericardial effusion no pulmonary hypertension Previewed by: Dr. Charisse Ramires MD (Electronically Signed) Final Date: 21 April 2023 10:45
== END | disposition home or self-care (01) ==
LOC: RADECHMAIN 15:53
PROVIDERS: ATTEND Internal Medicine
DX: I34.0 Nonrheumatic mitral (valve) insufficiency (principal); I51.7 Cardiomegaly
CPT/HCPCS: 93306

== ENCOUNTER → 2023-11-29 | Outpatient (CLI) | payer OTHER ==
--- NOTE | 2023-11-29 10:29 | MM ---
Reason for Exam: Follow-up at short interval from prior study. Last mammogram was performed 1 year(s) and 3 month(s) ago. Patient History: Menarche at age 11. First Full-Term at age 21. Hysterectomy at age 34. Postmenopausal. Sister had breast cancer at or over age 50. Risk Values: Mercedes 5 year model risk: 3.1%. NCI Lifetime model risk: 12.1%. Prior Study Comparison: 06/21/2020 Bilateral MG screening mammo w CAD - 2, [facility]. 07/04/2021 Bilateral MG screening mammo w CAD - 2, [facility]. 09/03/2022 Bilateral MG 3D screening mammo w/cad, [facility]. Tissue Density: The breasts are almost entirely fatty. Findings: There is no suspicious group of microcalcifications or new suspicious mass. Overall Assessment: Negative, BI-RAD 1 Management: Screening Mammogram of both breasts in [address] [facility] will attempt to contact patient to return for supplemental views and ultrasound if indicated. Patient should continue monthly self-breast exams. A clinical breast exam by your physician is recommended on an annual basis. This exam should not preclude additional follow-up of suspicious palpable abnormalities. Note on Mercedes scores and lifetime risk: 1. A Mercedes score greater than 3% is considered moderate risk. If this is the case, consider specialist referral to assess eligibility for a risk reducing agent. 2. If overall lifetime risk for the development of breast cancer is 20% or higher, the patient may qualify for future screening with alternating mammogram and breast MRI. Electronically signed and approved by: Stephen Lee DO
--- NOTE | 2023-11-30 11:47 | BD ---
EXAMINATION TYPE: Axial Bone Density DATE OF EXAM: 11/29/2023 CLINICAL HISTORY: 63 years old Female. ICD-10 CODE: M81.0 Age related osteoporosis Height: 62 Weight: 196.1 FRAX RISK QUESTIONS: Alcohol (3 or more units per day): no Family History (Parent hip fracture): no Glucocorticoids (More than 3mos): no (Ex: prednisone, prednisolone, methylprednisolone, dexamethasone, and hydrocortisone). History of Fracture in Adulthood: yes Secondary Osteoporosis: 1. Type 1 Diabetes: no 2. Hyperthyroidism: no 3. Menopause before 45: yes 4. Malnutrition: no 5. Chronic liver disease: no Rheumatoid Arthritis: yes Current Tobacco Use: no RISK FACTORS HISTORY OF: Spine Fracture: tail bone When: age 13 History of Wrist Fracture: left wrist When: 2017 Surgery to Spine/Hip(right/left)/Wrist (right/left): no MEDICATIONS: Thyroid Medications: levothyroxine How Long: since age 25 Osteoporosis Medications: alendronate How Lon EXAM MEASUREMENTS: Bone mineral densitometry was performed using the wireLawyer System. Bone mineral density as measured about the Lumbar spine is: ----- L1-L4(G/cm2): 1.125 T Score Values are as follows: ----- L1: -1.0 ----- L2: -1.4 ----- L3: 0.2 ----- L4: 0.1 ----- L1-L4: -0.5 Z Score Values are as follows: ----- L1: -0.2 ----- L2: -0.7 ----- L3: 0.9 ----- L4: 0.9 ----- L1-L4: 0.3 Bone mineral density : baseline Bone mineral density about the R hip (g/cm2): 0.880 Bone mineral density about the L hip (g/cm2): 0.970 T Score values are as follows: -----R Neck: -1.5 -----L Neck: -0.5 -----R Total: -1.0 -----L Total: -0.3 Z Score values are as follows: -----R Neck: -0.6 -----L Neck: 0.5 -----R Total: -0.4 -----L Total: 0.3 Bone mineral density : baseline FRAX%s: The graph provided illustrates a 17.5% chance for a major osteoporotic fx and a 2.0% chance f or the hips probability for fx in 10 years time. IMPRESSION: Osteopenia (T Score between -2.5 and -1). There is slightly increased risk of fracture and the patient may be considered for treatment. Re-Screen 2-5 years. NOTE: T-SCORE=SD OF THE YOUNG ADULT MEAN.
== END | disposition home or self-care (01) ==
LOC: RADMAMWWP 07:12
PROVIDERS: ATTEND Internal Medicine
DX: Z12.31 Encounter for screening mammogram for malignant neoplasm of breast (principal); M81.0 Age-related osteoporosis without current pathological fracture; M85.89 Other specified disorders of bone density and structure, multiple sites; Z78.0 Asymptomatic menopausal state; Z80.3 Family history of malignant neoplasm of breast
CPT/HCPCS: 77063; 77067; 77080

== ENCOUNTER → 2023-12-09 | Outpatient (CLI) | payer OTHER ==
--- NOTE | 2023-12-09 20:03 | US ---
EXAMINATION TYPE: US carotid duplex BILAT DATE OF EXAM: 12/09/2023 COMPARISON: 09/07/2022 CLINICAL INDICATION: Female, 63 years old with history of I65.23 OCCLUSION AND STENOSIS OF BILATERAL CAROTID; Follow up TECHNIQUE: Carotid duplex ultrasound examination. Indirect Doppler criteria was utilized. FINDINGS: EXAM MEASUREMENTS: RIGHT: Peak Systolic Velocity (PSV) cm/sec ----- Right CCA: 67 ----- Right ICA: 90 ----- Right ECA: 110 ICA/CCA ratio: 1.4 RIGHT: End Diastole cm/sec ----- Right CCA: 19 ----- Right ICA: 36 ----- Right ECA: 16 LEFT: Peak Systolic Velocity (PSV) cm/sec ----- Left CCA: 90 ----- Left ICA: 136 ----- Left ECA: 124 ICA/CCA ratio: 1.5 LEFT: End Diastole cm/sec ----- Left CCA: 26 ----- Left ICA: 45 ----- Left ECA: 22 VERTEBRALS (direction of flow): Right Vertebral: Antegrade Left Vertebral: Antegrade Rhythm: Normal VIRTUALIZATION ENGINEER NOTES: Mild minimal intimal thickening. IMPRESSION: 1. Elevated velocity left internal carotid artery suggesting moderate stenosis of 50-69%. Significa nt plaquing is not visualized however. Criteria for Assigning % of Stenosis / Diameter reduction (Estimation based on the indirect measurements of the internal carotid artery velocities (ICA PSV). 1. Normal (no stenosis)=ICA PSV < 125 cm/s: ratio < 2.0: ICA EDV<40 cm/s. 2. Less than 50% stenosis=ICA PSV < 125 cm/s: ratio < 2.0: ICA EDV<40 cm/s. 3. 50 to 69% stenosis=ICA PSV of 125 to 230 cm/s: ration 2.0 ? 4.0: ICA EDV 40-100 cm/s. 4. Greater than 70% stenosis to near occlusion= ICA PSV > 230 cm/s: ratio > 4.0: ICA EDV > 100 cm/s. 5. Near occlusion= ICA PSV velocities may be low or undetectable: variable ratio and ICA EDV. 6. Total occlusion=unable to detect flow.
== END | disposition home or self-care (01) ==
LOC: RADUSWWP 15:46
PROVIDERS: ATTEND Internal Medicine
DX: I65.23 Occlusion and stenosis of bilateral carotid arteries (principal)
CPT/HCPCS: 93880

== ENCOUNTER 2024-05-28 12:21 | Emergency (ER) | payer MEDICARE, OTHER ==
--- NOTE | 2024-05-28 13:00 | ED ---
SOB HPI - General Chief Complaint: Shortness of Breath Stated Complaint: Covid+ Time Seen by Provider: 05/28/24 12:45 Source: patient, RN notes reviewed Mode of arrival: ambulatory Limitations: no limitations - History of Present Illness Initial Comments: This is a 64-year-old female who presents to the emergency department for coughing, congestion, and shortness of breath. States that it started 5 days ago. She went to urgent care today and tested positive for COVID. When symptoms first began she was started on antibiotics, steroids, and cough me dication for her symptoms, but was concerned that it was not getting any better. Urgent care advised she come to the emergency department for evaluation of possible pneumonia associated with the COVID. She does have a history of asthma, but is getting improvement with using her inhaler. MD Complaint: shortness of breath, cough - Related Data Home Medications Medication Instructions Recorded Confirmed Levothyroxine Sodium [Synthroid] 187.5 mcg PO TANG 02/25/17 09/02/21 amLODIPine BESYLATE/BENAZEPRIL 1 cap PO QAM 02/25/17 09/02/21 [Lotrel 5-20 mg Capsule] diphenhydrAMINE HCL [Benadryl] 25 mg PO HS 06/18/19 09/02/21 Alendronate Sodium [Fosamax] 70 mg PO TANG 07/31/20 09/02/21 Atorvastatin [Lipitor] 40 mg PO HS 07/31/20 09/02/21 Baclofen 10 mg PO BID 07/31/20 09/02/21 Cetirizine HCl [Zyrtec] 10 mg PO DAILY 07/31/20 09/02/21 EPINEPHrine (Auto Inject) [Epipen] 0.3 mg IM ONCE PRN 07/31/20 09/02/21 Ibuprofen [Motrin] 600 mg PO Q8H PRN 07/31/20 09/02/21 Levothyroxine Sodium [Synthroid] 125 mcg PO MOTUWETHFRSA 07/31/20 09/02/21 Omeprazole [PriLOSEC] 40 mg PO DAILY 07/31/20 09/02/21 Previous Rx's Medication Instructions Recorded predniSONE [Deltasone] 20 mg PO BID #10 tab 08/23/22 Albuterol Sulfate [Albuterol 1 - 2 puff PO Q4-6H PRN #8.5 gm 05/28/24 Sulfate Hfa] Ketorolac [Toradol] 10 mg PO Q6HR PRN #15 tab 05/28/24 guaiFENesin-Coden 100-10MG/5ML 10 ml PO Q4-6H PRN 3 Days #180 ml 05/28/24 [Robitussin AC] Allergies Allergy/AdvReac Type Severity Reaction Status Date / Time ciprofloxacin [From Cipro] Allergy Rash/Hives Verified 05/28/24 12:37 orange Allergy Anaphylaxis Verified 05/28/24 12:37 phenazopyridine Allergy Rash/Hives Verified 05/28/24 12:37 [From Pyridium] sulfamethoxazole Allergy Rash/Hives Verified 05/28/24 12:37 [From Bactrim] trimethoprim [From Bactrim] Allergy Rash/Hives Verified 05/28/24 12:37 Review of Systems ROS Statement: Those systems with pertinent positive or pertinent negative responses have been documented in the HPI. ROS Other: All systems not noted in ROS Statement are negative. Past Medical History Past Medical History: Asthma, Chest Pain / Angina, Hyperlipidemia, Thyroid Disorder Additional Past Medical History / Comment(s): kidney stone, hernia, UTI History of Any Multi-Drug Resistant Organisms: None Reported Past Surgical History: Appendectomy, Hernia Repair, Hysterectomy, Orthopedic Surgery, Tubal Ligation Additional Past Surgical History / Comment(s): rt hand, lithotripsy, thyroidectomy, rotator cuff Past Anesthesia/Blood Transfusion Reactions: No Reported Reaction Past Psychological History: No Psychological Hx Reported Smoking Status: Never smoker Past Alcohol Use History: None Reported Past Drug Use History: None Reported - Past Family History Father Family Medical History: Cancer Additional Family Medical History / Comment(s): Lymph nodes. General Exam - General Exam Comments Initial Comments: Visual Physical Exam Vital signs reviewed General: Well-appearing, nontoxic, no acute distress. Head: Normocephalic, atraumatic Eyes: PERRLA, EOMI ENT: Airway patent Chest: Nonlabored breathing Skin: No visual rash, normal skin tone Neuro: Alert and oriented 3 Musculoskeletal: No gross abnormalities Limitations: no limitations General appearance: alert, in no apparent distress Head exam: Present: atraumatic, normocephalic, normal inspection Respiratory exam: Present: normal lung sounds bilaterally. Absent: respiratory distress, wheezes, rales, rhonchi, stridor Cardiovascular Exam: Present: regular rate, normal rhythm, normal heart sounds. Absent: systolic murmur, diastolic murmur, rubs, gallop, clicks Neurological exam: Present: alert, oriented X3, CN II-XII intact Psychiatric exam: Present: normal affect, normal mood Skin exam: Present: warm, dry, intact, normal color. Absent: rash Course Vital Signs 05/28/24 05/28/24 05/28/24 12:33 15:26 16:29 Temperature 98.1 F 98.5 F Pulse Rate 83 70 Respiratory 20 18 Rate Blood Pressure 149/84 O2 Sat by Pulse 99 97 Oximetry 05/28/24 17:21 Temperature 98.4 F Pulse Rate 68 Respiratory 18 Rate Blood Pressure 136/76 O2 Sat by Pulse 98 Oximetry Medical Decision Making - Medical Decision Making This is a 64 year old female who presents to the emergency department for coughing and congestion. Was pt. sent in by a medical professional or institution? @ -Urgent care Did you speak to anyone other than the patient for history? @ -No Did you review nursing and triage notes? @ -Yes, and I agree, it is accurate with regards to the patient's symptoms. Were old charts reviewed? @ -No Differential Diagnosis? @ -Differential Cough: -Influenza, Covid, RSV, croup, allergic rhinitis, GERD, pneumonia, bronchitis, C OPD, viral pharyngitis, streptococcal pharyngitis, this is not meant to be an all-inclusive list. EKG interpreted by me (3pts min.)? @ -Not obtained X-rays interpreted by me (1pt min.)? @ -Chest x-ray obtained, my interpretation identifies no localized consolidations or infiltrates. CT interpreted by me (1pt min.)? @ -Not obtained U/S interpreted by me (1pt. min.)? @ -Not obtained What testing was considered but not performed? (CT, X-rays, U/S, labs)? Why? @ -None What meds were considered but not given? Why? @ -None Did you discuss the management of the patient with other professionals? @ -No Did you reconcile home meds? @ -No Was smoking cessation discussed for >3mins.? @ -No Was critical care preformed (if so, how long)? @ -No Were there social determinants of health that impacted care today? How? (Homelessness, low income, unemployed, alcoholism, drug addiction, transportation, low edu. Level, literacy, decrease access to med. care, alf, rehab)? @ -No Was there de-escalation of care discussed even if they declined? (Discuss DNR or withdrawal of care, Hospice)? @ -No What co-morbidities impacted this encounter? (DM, HTN, Smoking, COPD, CAD, Cancer, CVA, Hep., AIDS, mental health diagnosis, sleep apnea, morbid obesity)? @ -Asthma Was patient admitted / discharged? @ -Discharged. Chest x-ray reveals no acute process. Symptoms well-controlled in the emergency department. She is largely out of the timeframe where Paxlovid can be prescribed. Advised that we can aim to control her symptoms otherwise. Prescription for Robitussin AC and Toradol prescribed for symptomatic management. Albuterol inhaler refilled as well. Advised getting plenty of rest and remaining well-hydrated. Patient discharged home in stable condition. Case discussed with ED attending Dr. Deiz. Return precautions reviewed in depth, the patient is instructed to return to the emergency department with any new, worsening, or concerning symptoms. Patient verbalized understanding. Undiagnosed new problem with uncertain prognosis? @ -None Drug Therapy requiring intensive monitoring for toxicity (Heparin, Nitro, Insulin, Cardizem)? @ -None Were any procedures done? @ -None Diagnosis/symptom? @ -COVID-19 Acute, or Chronic, or Acute on Chronic? @ -Acute Uncomplicated (without systemic symptoms) or Complicated (systemic symptoms)? @ -Uncomplicated Side effects of treatment? @ -None Exacerbation, Progression, or Severe Exacerbation] @ -Not applicable Poses a threat to life or bodily function? @ -No - Radiology Data Radiology results: report reviewed, image reviewed Disposition Clinical Impression: COVID-19 Disposition: HOME SELF-CARE Instructions (If sedation given, give patient instructions): COVID-19 (Coronavirus Disease 2019) (ED), How to Recover from COVID-19 at Home (ED) Additional Instructions: Return to the emergency department with any new, worsening, or concerning symptoms. Take the Toradol with Tylenol as needed for pain relief. If you choose to take the Toradol, do not take any other anti-inflammatories such as ibuprofen, take one or the other. You can take the cough medication every 4-6 hours as needed. Be aware that it may make you drowsy. Use your albuterol inhaler every 4-6 hours as needed. You can use the ipratropium nasal spray provided as 2 sprays in each nostril up to 4 times daily to help with postnasal drip/drainage. The oxymetazoline decongestant nasal spray provided can be used as 2 to 3 sprays in each nostril every 10-12 hours. Avoid using the oxymetazoline spray for more than 3 to 4 days. Make sure you get plenty of rest and remain well-hydrated. Prescriptions: Albuterol Sulfate [Albuterol Sulfate Hfa] 1 - 2 puff PO Q4-6H PRN #8.5 gm PRN Reason: Shortness Of Breath guaiFENesin-Coden 100-10MG/5ML [Robitussin AC] 10 ml PO Q4-6H PRN 3 Days #180 ml PRN Reason: Cough Ketorolac [Toradol] 10 mg PO Q6HR PRN #15 tab PRN Reason: Pain Is patient prescribed a controlled substance at d/c from ED?: Yes When asked, does pt state using other controlled substances?: No If prescribed controlled substance>3 days was MAPS reviewed?: Prescribed <3 Days Referrals: Hallie Petty MD [Primary Care Provider] - 1-2 days Time of Disposition: 16:50
--- NOTE | 2024-05-28 15:01 | XR ---
EXAMINATION TYPE: XR chest 2V DATE OF EXAM: 05/28/2024 COMPARISON: 07/31/2020 HISTORY: 64 year-old female shortness of breath, difficulty in breathing TECHNIQUE: PA and lateral views FINDINGS: Heart normal size. Aorta and pulmonary vasculature within normal limits. Asymmetric right hilar promi nence is unchanged. No consolidation or pleural effusion. Hyperinflation. Slight eventration anterior right hemidiaphragm is unchanged. IMPRESSION: COPD. Asymmetric right hilar prominence remains unchanged back to 2019 compatible with a benign etiol ogy. No acute process seen. [facility], , 05/28/2024 2:59 PM
[2024-05-28 15:28] VITALS: RESP 18
[2024-05-28] MEDS: OXYMETAZOLINE 0.05% NASL SPRAY 1 SPRAY BOTTLE NASAL STA (15:58)
[2024-05-28] MEDS: KETOROLAC 15 MG/ML 1 ML VIAL IM STA (15:58)
[2024-05-28] MEDS: guaiFENesin-Coden 100-10MG/5ML 10 ML CUP PO STA (15:58)
[2024-05-28] MEDS: IPRATROPIUM BROMIDE 0.06% NASAL SPRAY (15 ML) NASAL STA (16:28)
[2024-05-28 17:23] VITALS: BP 136/76; PULSE 68; TEMP 98.4
== END 2024-05-28 17:21 | disposition home or self-care (01) ==
LOC: EC 12:21
DX: U07.1 COVID-19 (principal)
CPT/HCPCS: 71046; 96372; 99284

== ENCOUNTER → 2024-06-15 | Outpatient (CLI) | payer MEDICARE, OTHER ==
[2024-06-15 10:50] LABS: Basophils # (A) 0.04 X 10*3/uL (0.00-0.10); Basophils % (A) 0.6 %; Eosinophils # (A) 0.04 X 10*3/uL (0.04-0.35); Eosinophils % (A) 0.6 %; HCT 39.7 % (37.2-46.3); HGB 12.8 g/dL (12.0-15.0); Lymphocytes # (A) 1.22 X 10*3/uL (0.90-5.00); Lymphocytes % (A) 18.3 %; MCH 27.9 pg (27.0-32.0); MCHC 32.2 g/dL (32.0-37.0); MCV 86.7 FL (80.0-97.0); Mean Platelet Volume 12.3 FL (9.5-12.2); Monocytes # (A) 0.49 X 10*3/uL (0.20-1.00); Monocytes % (A) 7.4 %; NRBC Per 100 WBC 0 X 10*3/uL (0.00-0.01); Neutrophils # (A) 4.86 X 10*3/uL (1.80-7.70); Neutrophils % (A) 72.9 %; Platelet Count 217 X 10*3/uL (140-440); RBC 4.58 X 10*6/uL (4.10-5.20); RDW 14.1 % (11.5-14.5); WBC 6.66 X 10*3/uL (4.50-10.00)
[2024-06-15 12:59] LABS: NT-Pro-B-Type Natriuretic Pept 57 pg/mL (0-125)
[2024-06-15 14:27] LABS: ALT 24 U/L (8-44); AST 19 U/L (13-35); Albumin 4.3 g/dL (3.8-4.9); Albumin/Globulin Ratio 1.39 Ratio (1.60-3.17); Alkaline Phosphatase 103 U/L (41-126); BUN/Creat Ratio 19.56 Ratio (12.00-20.00); Blood Urea Nitrogen 17.6 mg/dL (9.0-27.0); Calcium 9.4 mg/dL (8.7-10.3); Carbon Dioxide 17.8 mmol/L (21.6-31.8); Chloride 106 mmol/L (96-109); Chol/HDL Ratio 2.83 Ratio; Globulin 3.1 g/dL (1.6-3.3); Glucose 110 mg/dL (70-110); LDL Cholesterol,Calculated 98.8 mg/dL (0.0-131.0); Magnesium 1.9 mg/dL (1.5-2.4); Potassium 4.2 mmol/L (3.5-5.5); Sodium 141 mmol/L (135-145); Total Bilirubin 0.2 mg/dL (0.3-1.2); Total Protein 7.4 g/dL (6.2-8.2); Uric Acid 5.8 mg/dL (2.9-7.7); VLDL Calculation 14.34 mg/dL (5.00-40.00)
[2024-06-15 15:35] LABS: Appearance,Urine Clear (Clear); Bilirubin,Urine Negative (Negative); Blood,Urine Negative (Negative); Color,Urine Yellow (Yellow); Ketones,Urine Negative (Negative); Nitrite,Urine Negative (Negative); Urobilinogen,Urine 0.2 E.U./DL
== END | disposition home or self-care (01) ==
LOC: LABWHC1 07:30
PROVIDERS: ATTEND Internal Medicine
DX: M81.0 Age-related osteoporosis without current pathological fracture (principal); U09.9 Post COVID-19 condition, unspecified; I34.0 Nonrheumatic mitral (valve) insufficiency; I10 Essential (primary) hypertension; E78.2 Mixed hyperlipidemia; E03.9 Hypothyroidism, unspecified; R73.01 Impaired fasting glucose
CPT/HCPCS: 36415; 80053; 80061; 81003; 82306; 83036; 83735; 83880; 84443; 84550; 85025

== ENCOUNTER → 2024-06-26 | Outpatient (CLI) | payer MEDICARE, OTHER ==
[2024-06-26 07:21] LABS: African American GFR (CKD) >90 (>60 ml/min/1.73 sqM); Blood Urea Nitrogen 23 mg/dL (7-17); Non-African American GFR(CKD) 80 (>60 ml/min/1.73 sqM)
--- NOTE | 2024-06-26 11:40 | CT ---
EXAMINATION TYPE: CT chest w con DATE OF EXAM: 06/26/2024 COMPARISON: None HISTORY: Post covid condition, chronic cough CT DLP: 341.30 mGycm Automated exposure control for dose reduction was used. TECHNIQUE: CT scan of the chest is performed with IV Contrast, patient injected with 100 mL of Isovue 300. MIP Images are created on CT scanner and reviewed. 3D reconstructed images are created on an independent workstation and reviewed. FINDINGS: LUNGS: The lungs are grossly clear, there is no consolidative pneumonia. As minimal residual bilatera l subsegmental scarring or atelectasis. Biapical pleural thickening. There is a 2 mm nodule right middle lobe image 29 series 4 to small to characterize but likely benign . Underlying COPD. There is no pleural effusion or pneumothorax seen. The tracheobronchial tree is pat ent. MEDIASTINUM: There are no greater than 1 cm hilar or mediastinal lymph nodes. No pericardial effusi on is seen. OTHER: Small hiatal hernia. A low-attenuation of liver likely in the basis of hepatic steatosis or u nderlying hepatocellular disease. Hypertrophic and degenerative changes of the spine. IMPRESSION: 1. COPD with small scattered bilateral subsegmental areas of minimal consolidation. Favor scarring or atelectasis over pneumonia. Correlate clinically. 2. There is a 9-appearing 2 mm pulmonary micronodule right middle lobe too small to characterize. Rec ommend 12 month follow-up according to Fleischner Society guidelines as clinically warranted. Follow-up recommendations for incidental pulmonary nodules are per Fleischner?s [employer] [employer] or [employer]. [facility], , 06/26/2024 11:38 AM
== END ==
LOC: RADCTMAIN 06:08
PROVIDERS: ATTEND Internal Medicine
DX: U09.9 Post COVID-19 condition, unspecified
CPT/HCPCS: 36415; 71260; 82565; 84520

== ENCOUNTER → 2024-06-27 | Outpatient (CLI) | payer MEDICARE, OTHER ==
--- NOTE | 2024-06-27 19:14 | CT ---
EXAMINATION TYPE: CT angio neck CT DLP: 344.8 mGycm, Automated exposure control for dose reduction was used. DATE OF EXAM: 06/27/2024 6:50 PM CLINICAL INDICATION: Female, 64 years old with history of U09.9 POST COVID CONDITION R05.3 COUGH I65. 23 STEN; hx cardiovascular disease COMPARISON: None TECHNIQUE: Axially acquired helical CT Angiogram of the Neck was obtained with and without contrast. Axial images are supplemented with coronal and sagittal MIP reconstructions. 3D reconstructions were also performed and were post-processed at an independent workstation. Estimated carotid stenosis was calculated using the NASCET criteria. Contrast used:100ml mL of Isovue 370 with IV Contrast, Oral contrast used: , None. FINDINGS: CTA NECK: Right Carotid System: The common carotid artery and external carotid artery are patent. The carotid bifurcation demonstrate s no evidence of hemodynamically significant stenosis. The remaining portions of the internal carotid artery demonstrate normal size without significant narrowing. Left Carotid System: The common carotid artery and external carotid artery are patent. The carotid bifurcation demonstrate s no evidence of hemodynamically significant stenosis. The remaining portions of the internal carotid artery demonstrate normal size without significant narrowing. Vertebral arteries are patent without evidence hemodynamically significant stenosis. Left dominant ve rtebral artery system. There is a three-vessel aortic arch. The origins of the great vessels are patent. No evidence of hemo dynamically significant stenosis. IMPRESSION: No evidence of dissection of the cervical internal carotid arteries or vertebral arteries or any evid ence of significant stenosis at the carotid bifurcations. [facility], , 06/27/2024 7:12 PM
== END | disposition home or self-care (01) ==
LOC: RADCTMAIN 16:54
PROVIDERS: ATTEND Internal Medicine
CPT/HCPCS: 36415; 70498

== ENCOUNTER → 2024-08-29 | Outpatient (CLI) | payer MEDICARE, OTHER | LOC: CPPFTMAIN 15:42 | PROVIDERS: ATTEND Internal Medicine | DX: J44.9 Chronic obstructive pulmonary disease, unspecified (principal); Z88.2 Allergy status to sulfonamides; Z88.1 Allergy status to other antibiotic agents; Z88.6 Allergy status to analgesic agent; Z91.018 Allergy to other foods | CPT/HCPCS: 94060; 94726; 94729 ==

== ENCOUNTER → 2025-01-06 | Outpatient (CLI) | payer MEDICARE, OTHER ==
--- NOTE | 2025-01-06 09:58 | XR ---
EXAMINATION TYPE: XR cervical spine w flex/ext DATE OF EXAM: 01/06/2025 9:50 AM INDICATION: Patient age:Female; 64 years old; Reason for study: M47.12 SPONDYLOSIS; PHH, pain COMPARISON: CTA neck 06/27/2024, CT soft tissue neck 06/02/2020, cervical spine radiograph 05/13/2020 TECHNIQUE: The cervical spine was imaged in frontal, lateral, bilateral oblique, extension, flexion, and odontoid projections. FINDINGS: No acute fracture. Grade 1 retrolisthesis of C3 on C4. Improves with flexion. Poor visualization of t he C7 vertebral body due to the patient's shoulders. Disc space narrowing at C3-C4. Pedicles are inta ct. Soft tissues are within normal limits. The odontoid appears intact. IMPRESSION: 1. No fracture or dislocation. 2. Grade 1 retrolisthesis of C3 on C4 with mild degenerative disc disease. [facility], , 01/06/2025 9:55 AM
[2025-01-06 14:07] LABS: Basophils # (A) 0.06 X 10*3/uL (0.00-0.10); Basophils % (A) 1.1 %; Eosinophils # (A) 0.29 X 10*3/uL (0.04-0.35); Eosinophils % (A) 5.1 %; HCT 42.4 % (37.2-46.3); HGB 13.5 g/dL (12.0-15.0); Lymphocytes # (A) 1.22 X 10*3/uL (0.90-5.00); Lymphocytes % (A) 21.4 %; MCH 27.7 pg (27.0-32.0); MCHC 31.8 g/dL (32.0-37.0); MCV 86.9 FL (80.0-97.0); Monocytes # (A) 0.46 X 10*3/uL (0.20-1.00); Monocytes % (A) 8.1 %; NRBC Per 100 WBC 0 X 10*3/uL (0.00-0.01); Neutrophils # (A) 3.66 X 10*3/uL (1.80-7.70); Neutrophils % (A) 64.1 %; Platelet Count 254 X 10*3/uL (140-440); RBC 4.88 X 10*6/uL (4.10-5.20)
[2025-01-06 14:42] LABS: BUN/Creat Ratio 17.89 Ratio (12.00-20.00); Blood Urea Nitrogen 16.1 mg/dL (9.0-27.0); Chloride 108 mmol/L (96-109); Chol/HDL Ratio 3.17 Ratio; Creatine Kinase 162 U/L (26-186); Glucose 104 mg/dL (70-110); LDL Cholesterol,Calculated 89.6 mg/dL (0.0-131.0); Magnesium 1.9 mg/dL (1.5-2.4); Potassium 4.4 mmol/L (3.5-5.5); Sodium 141 mmol/L (135-145)
[2025-01-06 14:43] LABS: ALT 24 U/L (8-44); AST 22 U/L (13-35); Albumin 4.3 g/dL (3.8-4.9); Albumin/Globulin Ratio 1.48 Ratio (1.60-3.17); Alkaline Phosphatase 112 U/L (41-126); Calcium 9.9 mg/dL (8.7-10.3); Carbon Dioxide 19.7 mmol/L (21.6-31.8); Globulin 2.9 g/dL (1.6-3.3); Total Bilirubin 0.3 mg/dL (0.3-1.2); Total Protein 7.2 g/dL (6.2-8.2)
[2025-01-06 15:49] LABS: NT-Pro-B-Type Natriuretic Pept 64 pg/mL (0-125)
== END | disposition home or self-care (01) ==
LOC: LABWHC1 09:03
PROVIDERS: ATTEND Internal Medicine
DX: Z12.31 Encounter for screening mammogram for malignant neoplasm of breast (principal); M47.12 Other spondylosis with myelopathy, cervical region; I10 Essential (primary) hypertension; M81.0 Age-related osteoporosis without current pathological fracture; E78.2 Mixed hyperlipidemia; I34.0 Nonrheumatic mitral (valve) insufficiency; R73.01 Impaired fasting glucose
CPT/HCPCS: 36415; 72052; 80053; 80061; 82306; 82550; 83036; 83735; 83880; 84443; 84550; 85025

== ENCOUNTER → 2025-01-11 | Outpatient (CLI) | payer MEDICARE, OTHER ==
--- NOTE | 2025-01-11 07:34 | MM ---
Reason for Exam: Screening (asymptomatic). Last mammogram was performed 1 year(s) and 2 month(s) ago. Patient History: Menarche at age 11. First Full-Term at age 21. Hysterectomy at age 34. Postmenopausal. Sister had breast cancer, age 60. Risk Values: Mercedes 5 year model risk: 3.2%. NCI Lifetime model risk: 11.7%. Prior Study Comparison: 07/04/2021 Bilateral MG screening mammo w CAD - 2, [facility]. 09/03/2022 Bilateral MG 3D screening mammo w/cad, [facility]. 11/29/2023 Bilateral MG diagnostic mammo BI wo CAD, [facility]. Tissue Density: There are scattered areas of fibroglandular density. Findings: Analyzed By CAD. Stable sub-5 mm well-circumscribed mass in the middle depth right breast centrally. There is no suspicious group of microcalcifications or new suspicious mass in either breast. Overall Assessment: Negative, BI-RAD 1 Management: Screening Mammogram of both breasts in 1 year. . Patient should continue monthly self-breast exams. A clinical breast exam by your physician is recommended on an annual basis. This exam should not preclude additional follow-up of suspicious palpable abnormalities. Note on Mercedes scores and lifetime risk: 1. A Mercedes score greater than 3% is considered moderate risk. If this is the case, consider specialist referral to assess eligibility for a risk reducing agent. 2. If overall lifetime risk for the development of breast cancer is 20% or higher, the patient may qualify for future screening with alternating mammogram and breast MRI. [facility], , 01/11/2025 7:31 AM. Electronically signed and approved by: Chapin Caruso M.D.
== END | disposition home or self-care (01) ==
LOC: RADMAMWWP 07:13
PROVIDERS: ATTEND Internal Medicine
DX: Z12.31 Encounter for screening mammogram for malignant neoplasm of breast (principal); R92.323 Mammographic fibroglandular density, bilateral breasts; Z78.0 Asymptomatic menopausal state; Z80.3 Family history of malignant neoplasm of breast
CPT/HCPCS: 77063; 77067

== ENCOUNTER 2025-04-12 08:07 | Emergency (ER) | payer MEDICARE, OTHER ==
[2025-04-12 08:13] VITALS: TEMP 97.4
--- NOTE | 2025-04-12 08:35 | ED ---
General Adult HPI - General Chief complaint: Extremity Injury, Lower Stated complaint: L Leg injury Time Seen by Provider: 04/12/25 08:15 Source: patient, RN notes reviewed Mode of arrival: ambulatory Limitations: no limitations - History of Present Illness Initial comments: Patient is a 65-year-old female presenting to the emergency department with nicholas ballesteros with left leg pain. Patient was shopping at [employer] when her left foot got stuck and she tripped forward. Patient had sudden discomfort left inner thigh since that time. Discomfort has persisted and is greatly increased with any movement. No other area of injury or concern. No direct trauma to the region. - Related Data Home Medications Medication Instructions Recorded Confirmed Levothyroxine Sodium [Synthroid] 187.5 mcg PO TANG 02/25/17 09/02/21 amLODIPine BESYLATE/BENAZEPRIL 1 cap PO QAM 02/25/17 09/02/21 [Lotrel 5-20 mg Capsule] diphenhydrAMINE HCL [Benadryl] 25 mg PO HS 06/18/19 09/02/21 Alendronate Sodium [Fosamax] 70 mg PO TANG 07/31/20 09/02/21 Atorvastatin [Lipitor] 40 mg PO HS 07/31/20 09/02/21 Baclofen 10 mg PO BID 07/31/20 09/02/21 Cetirizine HCl [Zyrtec] 10 mg PO DAILY 07/31/20 09/02/21 EPINEPHrine (Auto Inject) [Epipen] 0.3 mg IM ONCE PRN 07/31/20 09/02/21 Ibuprofen [Motrin] 600 mg PO Q8H PRN 07/31/20 09/02/21 Levothyroxine Sodium [Synthroid] 125 mcg PO MOTUWETHFRSA 07/31/20 09/02/21 Omeprazole [PriLOSEC] 40 mg PO DAILY 07/31/20 09/02/21 Previous Rx's Medication Instructions Recorded predniSONE [Deltasone] 20 mg PO BID #10 tab 08/23/22 Albuterol Sulfate [Albuterol 1 - 2 puff PO Q4-6H PRN #8.5 gm 05/28/24 Sulfate Hfa] Ketorolac [Toradol] 10 mg PO Q6HR PRN #15 tab 05/28/24 guaiFENesin-Coden 100-10MG/5ML 10 ml PO Q4-6H PRN 3 Days #180 ml 05/28/24 [Robitussin AC] Cyclobenzaprine [Flexeril] 10 mg PO TID PRN #12 tablet 04/12/25 Ibuprofen [Motrin] 600 mg PO Q6HR PRN #20 tab 04/12/25 Allergies Allergy/AdvReac Type Severity Reaction Status Date / Time ciprofloxacin [From Cipro] Allergy Rash/Hives Verified 04/12/25 08:13 orange Allergy Anaphylaxis Verified 04/12/25 08:13 phenazopyridine Allergy Rash/Hives Verified 04/12/25 08:13 [From Pyridium] sulfamethoxazole Allergy Rash/Hives Verified 04/12/25 08:13 [From Bactrim] trimethoprim [From Bactrim] Allergy Rash/Hives Verified 04/12/25 08:13 Review of Systems ROS Statement: Those systems with pertinent positive or pertinent negative responses have been documented in the HPI. ROS Other: All systems not noted in ROS Statement are negative. Constitutional: Denies: fever Eyes: Denies: eye pain ENT: Denies: ear pain Respiratory: Denies: dyspnea Cardiovascular: Denies: chest pain Gastrointestinal: Denies: abdominal pain Musculoskeletal: Reports: as per HPI Past Medical History Past Medical History: Asthma, Chest Pain / Angina, Hyperlipidemia, Thyroid Disorder Additional Past Medical History / Comment(s): kidney stone, hernia, UTI History of Any Multi-Drug Resistant Organisms: None Reported Past Surgical History: Appendectomy, Hernia Repair, Hysterectomy, Orthopedic Surgery, Tubal Ligation Additional Past Surgical History / Comment(s): rt hand, lithotripsy, thyroidectomy, rotator cuff Past Anesthesia/Blood Transfusion Reactions: No Reported Reaction Past Psychological History: No Psychological Hx Reported Smoking Status: Never smoker Past Alcohol Use History: None Reported Past Drug Use History: None Reported - Past Family History Father Family Medical History: Cancer Additional Family Medical History / Comment(s): Lymph nodes. General Exam Limitations: no limitations General appearance: alert, in no apparent distress Head exam: Present: normocephalic Eye exam: Present: normal appearance Neck exam: Present: normal inspection Respiratory exam: Present: normal lung sounds bilaterally Cardiovascular Exam: Present: regular rate, normal rhythm Expanded Peripheral pulses: 2+: Posterior Tibialis (L), Dorsalis Pedis (L) GI/Abdominal exam: Present: soft. Absent: tenderness, pulsatile mass Extremities exam: Present: tenderness (Minimal tenderness left upper inner thigh. No swelling or hernia. No color change. Distal extremities are neurovascular intact.) Back exam: Absent: tenderness Neurological exam: Present: alert. Absent: motor sensory deficit Psychiatric exam: Present: normal affect, normal mood Skin exam: Present: normal color Course Vital Signs 04/12/25 08:09 Temperature 97.4 F L Pulse Rate 76 Respiratory 18 Rate Blood Pressure 161/93 O2 Sat by Pulse 99 Oximetry Medical Decision Making - Medical Decision Making Was pt. sent in by a medical professional or institution (, PA, CONSTRUCTION HELPER, urgent care, hospital, or correction...) When possible be specific @ -No Did you speak to anyone other than the patient for history (EMS, parent, family, police, friend...)? What history was obtained from this source @ -No Did you review nursing and triage notes (agree or disagree)? Why? @ -I reviewed and agree with nursing and triage notes Were old charts reviewed (outside hosp., previous admission, EMS record, old EKG, old radiological studies, urgent care reports/EKG's, correction records)? Report findings @ -No old charts were reviewed Differential Diagnosis (chest pain, altered mental status, abdominal pain women, abdominal pain men, vaginal bleeding, weakness, fever, dyspnea, syncope, headache, dizziness, GI bleed, back pain, seizure, CVA, palpatations, mental health, musculoskeletal)? @ -Differential Musculoskeletal Muscular strain, contusion, ligament sprain, fracture, arthritis, septic arthritis, bursitis, cellulitis, muscle spasm, nerve compression, DVT, arterial occlusion, herpes zoster, electrolyte abnormality, tumor.... This is not meant to be in all inclusive list EKG interpreted by me (3pts min.). @ -As above X-rays interpreted by me (1pt min.). @ -X-ray pelvis and left hip does show osteoarthritis left hip CT interpreted by me (1pt min.). @ -None done U/S interpreted by me (1pt. min.). @ -None done What testing was considered but not performed or refused? (CT, X-rays, U/S, labs)? Why? @ -None What meds were considered but not given or refused? Why? @ -None Did you discuss the management of the patient with other professionals (professionals i.e. , PA, CONSTRUCTION HELPER, lab, RT, psych nurse, social services counselor, appraisal manager, teacher, personnel training officer, case repairer)? Give summary @ -No Was smoking cessation discussed for >3mins.? @ -No Was critical care preformed (if so, how long)? @ -No Were there social determinants of health that impacted care today? How? (Homelessness, low income, unemployed, alcoholism, drug addiction, transportation, low edu. Level, literacy, decrease access to med. care, senior care, rehab)? @ -No Was there de-escalation of care discussed even if they declined (Discuss DNR or withdrawal of care, Hospice)? DNR status @ -No What co-morbidities impacted this encounter? (DM, HTN, Smoking, COPD, CAD, Cancer, CVA, ARF, Chemo, Hep., AIDS, mental health diagnosis, sleep apnea, morbid obesity)? @ -None Was patient admitted / discharged? Hospital course, mention meds given and route, prescriptions, significant lab abnormalities, going to OR and other pertinent info. @ -Patient reevaluated and does have improvement with medications. Patient and family are updated on results and need for follow-up. Undiagnosed new problem with uncertain prognosis? @ -No Drug Therapy requiring intensive monitoring for toxicity (Heparin, Nitro, Insulin, Cardizem)? @ -No Were any procedures done? @ -No Diagnosis/symptom? @ -Left hip strain Acute, or Chronic, or Acute on Chronic? @ -Acute Uncomplicated (without systemic symptoms) or Complicated (systemic symptoms)? @ -Default Side effects of treatment? @ -No Exacerbation, Progression, or Severe Exacerbation? @ -No Poses a threat to life or bodily function? How? (Chest pain, [place], [place], pneumonia, PE, COPD, DKA, ARF, appy, cholecystitis, CVA, Diverticulitis, Homicidal, Suicidal, threat to staff... and all critical care pts) @ -No Disposition Clinical Impression: Strain of left hip Disposition: HOME SELF-CARE Condition: Stable Instructions (If sedation given, give patient instructions): Hip Sprain (ED) Additional Instructions: Prescription sent to pharmacy. Please do follow-up with your primary care physician in the next couple of days for recheck. Return for increased pain, swelling, weakness, worsening or change in symptoms or other concerns. Rest and ice. Prescriptions: Cyclobenzaprine [Flexeril] 10 mg PO TID PRN #12 tablet PRN Reason: Pain Ibuprofen [Motrin] 600 mg PO Q6HR PRN #20 tab PRN Reason: Pain Is patient prescribed a controlled substance at d/c from ED?: No Referrals: Hallie Petty MD [Primary Care Provider] - 1-2 days Time of Disposition: 09:51
[2025-04-12] MEDS: KETOROLAC 15 MG/ML 1 ML VIAL IM STA (08:52)
[2025-04-12] MEDS: HYDROmorphone 1 MG/ML 1 ML SYRINGE IM STA (08:53)
--- NOTE | 2025-04-12 09:35 | XR ---
EXAMINATION TYPE: XR Hip LT and AP Pelvis DATE OF EXAM: 04/12/2025 9:26 AM INDICATION: Patient age:Female; 65 years old; Reason for study: pain; PHH. pain COMPARISON: CT abdomen and pelvis 05/23/2022 TECHNIQUE: The left hip was examined in the frontal and lateral projections and a AP pelvis. FINDINGS: Left hip appears intact without evidence of fracture. Osteoarthritic changes of the left hi p with medial joint space narrowing and marginal osteophytosis. Degenerative changes of the pubic sym physis. Right hip appears intact. Both SI joints appear intact. No soft tissue swelling. Likely phleb oliths. IMPRESSION: 1. No acute osseous pathology. 2. Moderate osteoarthritic changes of the left hip. [facility], , 04/12/2025 9:32 AM
[2025-04-12] MEDS: HYDROcodone/APAP 5-325MG 1 EACH TAB PO STA (10:14)
[2025-04-12 10:16] VITALS: BP 134/72; PULSE 71; RESP 20
== END 2025-04-12 10:22 | disposition home or self-care (01) ==
LOC: EC 08:07
DX: S76.012A Strain of muscle, fascia and tendon of left hip, initial encounter (principal); Z88.1 Allergy status to other antibiotic agents; Z88.2 Allergy status to sulfonamides; Z91.018 Allergy to other foods; Z88.8 Allergy status to other drugs, medicaments and biological substances; W01.0XXA Fall on same level from slipping, tripping and stumbling without subsequent striking against object, initial encounter
CPT/HCPCS: 73502; 99283; 96372 ×2; J1171; J1885